=== PATIENT | female | born 1990 | race Caucasian/White ===

== ENCOUNTER 2016-10-13 10:08 | Outpatient (CLI) | payer BC | END 2016-10-13 11:08 | disposition home or self-care (01) | LOC: LC 10:08 | PROVIDERS: ATTEND Obstetrics & Gynecology | PROC: 4A1HXCZ Monitoring of Products of Conception, Cardiac Rate, External Approach (ICD-10-PCS; principal; 2016-10-13) | DX: O24.419 Gestational diabetes mellitus in pregnancy, unspecified control (principal); Z3A.35 35 weeks gestation of pregnancy | CPT/HCPCS: 59025 ==

== ENCOUNTER 2016-10-26 10:03 | Outpatient (CLI) | payer BC ==
--- NOTE | 2016-10-26 10:06 | Non Stress Test Report ---
Non Stress Test Datetime Report Generated by CPN: 10/26/2016 10:05 DEMOGRAPHIC EGA NST: 35.0 INDICATION Indication for Study: Other Indication for Study (NST) Other: Repeat NST MONITORING Monitor Explained: Monitor Explained; Test Explained; Patient Verbalized Understanding Monitor Explained: Monitor Explained; Test Explained; Patient Verbalized Understanding Time on Monitor: 10/13/2016 10:32 Time on Monitor: 10/13/2016 10:18 Time off Monitor: 10/13/2016 11:03 NST Duration: 45 NST INTERVENTIONS NST Interventions: PO Hydration; Reposition Patient NST Interventions: PO Hydration; Reposition Patient Physician Notified NST: Newton BABY A: [id number] BABY A Movement : Present Movement : Present Movement : Present Contraction Frequency : none FHR Baseline : 135 FHR Baseline : 135 Accelerations : 15X15 Accelerations : 15X15 Decelerations : None Decelerations : None Variability : Moderate 6-25bpm Variability : Moderate 6-25bpm NST Review: Meets Criteria for Reactive NST NST Review: Meets Criteria for Reactive NST NST Review and Verified By : Ricarda Vidal RNC NST Review and Verified By : Tutu Callahan RN NST Results: Reactive NST Results: Reactive NST REPORT Report Trigger: Send Report
[2016-10-26 10:40] LABS: APPEARANCE,URINE CLEAR; BILIRUBIN,URINE NEGATIVE (NEGATIVE); GLUCOSE, URINE NEGATIVE (NEGATIVE); KETONES,URINE NEGATIVE (NEGATIVE); LEUKOCYTE ESTERASE,URINE NEGATIVE (NEGATIVE); NITRITE,URINE NEGATIVE (NEGATIVE); PROTEIN,URINE NEGATIVE (NEGATIVE); URINE SPECIFIC GRAVITY 1.003; UROBILINOGEN,URINE NEGATIVE mg/dL (<2.0)
[2016-10-26 10:56] LABS: URINE BARBITURATES SCREEN NEGATIVE; URINE METHADONE SCREEN NEGATIVE; URINE OPIATES LOW NEGATIVE; URINE PHENCYCLIDINE SCREEN NEGATIVE
[2016-10-26 11:01] LABS: ABSOLUTE EOSINOPHILS # (AUTO) 0.1 10^3/uL (0.0-0.6); ABSOLUTE LYMPHOCYTES (AUTO) 1.9 10^3/uL (0.5-4.7); ABSOLUTE MONOCYTES (AUTO) 0.5 10^3/uL (0.1-1.4); ABSOLUTE NEUT (AUTO) 8.6 10^3/uL (1.7-8.2); BASOPHILS % (AUTO) 0.3 % (0-2); EOSINOPHILS % (AUTO) 0.5 % (0-6); HEMATOCRIT 31.9 % (36.0-47.0); HEMOGLOBIN 10.6 g/dL (12.0-15.5); HGB HCT DIFFERENCE -0.1; LYMPHOCYTES % (AUTO) 17.4 % (13-45); MEAN CORPUSCULAR HEMOGLOBIN 28.3 pg (27.0-33.4); MEAN CORPUSCULAR HGB CONC 33.3 g/dL (32.0-36.0); MEAN CORPUSCULAR VOLUME 85 fl (80-97); MONOCYTES % (AUTO) 4.6 % (3-13); RED BLOOD COUNT 3.75 10^6/uL (3.72-5.28); RED CELL DISTRIBUTION WIDTH 14.4 % (11.5-14.0); SEGMENTED NEUTROPHILS % (AUTO) 77.2 % (42-78); WHITE BLOOD COUNT 11.2 10^3/uL (4.0-10.5)
[2016-10-26 11:16] LABS: ALANINE AMINOTRANSFERASE 24 U/L (9-52); ALBUMIN 2.9 g/dL (3.5-5.0); ALKALINE PHOSPHATASE 152 U/L (38-126); ANION GAP 8 (5-19); ASPARTATE AMINO TRANSFERASE 13 U/L (14-36); BILIRUBIN,TOTAL 0.3 mg/dL (0.2-1.3); BLOOD UREA NITROGEN 6 mg/dL (7-20); CALCIUM 9.2 mg/dL (8.4-10.2); CARBON DIOXIDE 22 mmol/L (22-30); CHLORIDE 104 mmol/L (98-107); CREATININE RESULT 0.45 mg/dL (0.52-1.25); GLUCOSE 110 mg/dL (75-110); LDH 371 U/L (313-618); POTASSIUM 4.4 mmol/L (3.6-5.0); SODIUM 134.2 mmol/L (137-145); TOTAL PROTEIN 6.5 g/dL (6.3-8.2); URIC ACID 3.8 mg/dL (2.5-6.2)
--- NOTE | 2016-10-26 11:36 | Non Stress Test Report ---
Non Stress Test Datetime Report Generated by CPN: 10/26/2016 11:36 DEMOGRAPHIC EGA NST: 36.6 INDICATION Indication for Study: Ordered by Provider Indication for Study (NST) Other: pre-e workup MONITORING Monitor Explained: Monitor Explained; Test Explained; Patient Verbalized Understanding Time on Monitor: 10/26/2016 10:14 Time off Monitor: 10/26/2016 11:18 NST Duration: 64 NST INTERVENTIONS NST Interventions: PO Hydration Physician Notified NST: Dr. Newton BABY A Movement : Present Contraction Frequency : none FHR Baseline : 140 Accelerations : 15X15 Decelerations : None Variability : Moderate 6-25bpm NST Review: Meets Criteria for Reactive NST NST Review and Verified By : KAITLIN Mcdonald Results: Reactive NST REPORT Report Trigger: Send Report
== END 2016-10-26 11:28 | disposition home or self-care (01) ==
LOC: LC 10:03
PROVIDERS: ATTEND Obstetrics & Gynecology
PROC: 4A1HXCZ Monitoring of Products of Conception, Cardiac Rate, External Approach (ICD-10-PCS; principal; 2016-10-26)
DX: O16.3 Unspecified maternal hypertension, third trimester (principal); Z3A.36 36 weeks gestation of pregnancy
CPT/HCPCS: 36415; 59025; 80053; 80307; 81001; 83615; 84550; 85025

== ENCOUNTER 2016-11-04 16:49 | Outpatient (CLI) | payer BC ==
[2016-11-04 18:00] LABS: ABSOLUTE EOSINOPHILS # (AUTO) 0.1 10^3/uL (0.0-0.6); ABSOLUTE LYMPHOCYTES (AUTO) 2.2 10^3/uL (0.5-4.7); ABSOLUTE MONOCYTES (AUTO) 0.7 10^3/uL (0.1-1.4); ABSOLUTE NEUT (AUTO) 8.9 10^3/uL (1.7-8.2); BASOPHILS % (AUTO) 0.3 % (0-2); EOSINOPHILS % (AUTO) 0.7 % (0-6); HEMATOCRIT 31.9 % (36.0-47.0); HEMOGLOBIN 10.4 g/dL (12.0-15.5); HGB HCT DIFFERENCE -0.7; LYMPHOCYTES % (AUTO) 18.4 % (13-45); MEAN CORPUSCULAR HEMOGLOBIN 28.1 pg (27.0-33.4); MEAN CORPUSCULAR HGB CONC 32.7 g/dL (32.0-36.0); MEAN CORPUSCULAR VOLUME 86 fl (80-97); MONOCYTES % (AUTO) 5.8 % (3-13); RED BLOOD COUNT 3.72 10^6/uL (3.72-5.28); RED CELL DISTRIBUTION WIDTH 15.3 % (11.5-14.0); SEGMENTED NEUTROPHILS % (AUTO) 74.8 % (42-78); WHITE BLOOD COUNT 11.8 10^3/uL (4.0-10.5)
--- NOTE | 2016-11-04 18:01 | L&D Flow Sheet ---
LD Flowsheet Datetime Report Generated by CPN: 11/04/2016 18:00 Datetime: 11/04/2016 17:56 Vital Signs NBP Sys/Nyla/Mean (mmHg): 122 (QS system process) : 70 (QS system process) : 90 (QS system process) Pulse: 82 (QS system process) Communication LaborFlag: Antepartum (QS system process) Datetime: 11/04/2016 17:44 Vital Signs NBP Sys/Nyla/Mean (mmHg): 119 (QS system process) : 64 (QS system process) : 83 (QS system process) Pulse: 79 (QS system process) Communication LaborFlag: Antepartum (QS system process) Datetime: 11/04/2016 17:26 Vital Signs NBP Sys/Nyla/Mean (mmHg): 122 (QS system process) : 82 (QS system process) : 97 (QS system process) Pulse: 87 (QS system process) Communication LaborFlag: Antepartum (QS system process) Datetime: 11/04/2016 17:12 Patient Care Patient Position/Activity: Left Lateral; Low Fowlers (Dorothy Marlatt, RN) Datetime: 11/04/2016 17:11 Vital Signs NBP Sys/Nyla/Mean (mmHg): 114 (QS system process) : 79 (QS system process) : 92 (QS system process) Pulse: 90 (QS system process) Communication LaborFlag: Antepartum (QS system process)
[2016-11-04 18:06] LABS: ALANINE AMINOTRANSFERASE 29 U/L (9-52); ALBUMIN 3.3 g/dL (3.5-5.0); ALKALINE PHOSPHATASE 160 U/L (38-126); ANION GAP 11 (5-19); ASPARTATE AMINO TRANSFERASE 12 U/L (14-36); BILIRUBIN,TOTAL 0.3 mg/dL (0.2-1.3); BLOOD UREA NITROGEN 8 mg/dL (7-20); CALCIUM 9.4 mg/dL (8.4-10.2); CARBON DIOXIDE 22 mmol/L (22-30); CHLORIDE 103 mmol/L (98-107); CREATININE RESULT 0.52 mg/dL (0.52-1.25); GLUCOSE 85 mg/dL (75-110); LDH 384 U/L (313-618); POTASSIUM 4.5 mmol/L (3.6-5.0); SODIUM 135.6 mmol/L (137-145); TOTAL PROTEIN 6.5 g/dL (6.3-8.2); URIC ACID 3.9 mg/dL (2.5-6.2)
--- NOTE | 2016-11-04 18:53 | Non Stress Test Report ---
Non Stress Test Datetime Report Generated by CPN: 11/04/2016 18:53 DEMOGRAPHIC EGA NST: 38.1 INDICATION Indication for Study: Other Indication for Study (NST) Other: Pre-E work up MONITORING Monitor Explained: Monitor Explained; Test Explained; Patient Verbalized Understanding Time on Monitor: 11/04/2016 17:13 Time off Monitor: 11/04/2016 18:44 NST Duration: 91 NST INTERVENTIONS NST Interventions: PO Hydration Physician Notified NST: Dr. Newton BABY A: [id number] BABY A Movement : Present Contraction Frequency : 0 FHR Baseline : 140 Accelerations : 15X15 Decelerations : None Variability : Moderate 6-25bpm NST Review: Meets Criteria for Reactive NST NST Review and Verified By : kraig camp RNC NST Results: Reactive NST REPORT Report Trigger: Send Report
[2016-11-04 19:44] LABS: URINE BARBITURATES SCREEN NEGATIVE; URINE METHADONE SCREEN NEGATIVE; URINE OPIATES LOW NEGATIVE; URINE PHENCYCLIDINE SCREEN NEGATIVE
== END 2016-11-04 18:49 | disposition home or self-care (01) ==
LOC: LC 16:49
PROVIDERS: ATTEND Obstetrics & Gynecology
PROC: 4A1HXCZ Monitoring of Products of Conception, Cardiac Rate, External Approach (ICD-10-PCS; principal; 2016-11-04)
DX: O16.3 Unspecified maternal hypertension, third trimester (principal); Z3A.38 38 weeks gestation of pregnancy
CPT/HCPCS: 36415; 59025; 80053; 80307; 83615; 84550; 85025

== ENCOUNTER 2016-11-08 09:02 | Inpatient (IN) | payer BC ==
[2016-11-08] MEDS ORDERED: OXYTOCIN/NORMAL SALINE 1,000 ML IV PRN (09:19)
[2016-11-08] MEDS ORDERED: RINGERS SOLUTION,LACTATED 1,000 ML IV PRN (09:19)
[2016-11-08] MEDS ORDERED: RINGERS SOLUTION,LACTATED 1,000 ML IV ONE (09:19)
[2016-11-08] MEDS ORDERED: MISOPROSTOL 0.1 MG TABLET PV ONE ×3 (09:37→19:47)
[2016-11-08] MEDS ORDERED: MISOPROSTOL 0.1 MG TABLET ONE ×3 (09:45→20:02)
[2016-11-08 09:48] LABS: APPEARANCE,URINE SLIGHTLY-CLOUDY; BILIRUBIN,URINE NEGATIVE (NEGATIVE); GLUCOSE, URINE NEGATIVE (NEGATIVE); KETONES,URINE TRACE mg/dL (NEGATIVE); LEUKOCYTE ESTERASE,URINE SMALL (NEGATIVE); NITRITE,URINE NEGATIVE (NEGATIVE); PROTEIN,URINE NEGATIVE (NEGATIVE); URINE SPECIFIC GRAVITY 1.011; UROBILINOGEN,URINE NEGATIVE mg/dL (<2.0)
--- NOTE | 2016-11-08 10:00 | L&D Flow Sheet ---
LD Flowsheet Datetime Report Generated by CPN: 11/08/2016 10:00 Datetime: 11/08/2016 09:22 NBP Sys/Nyla/Mean (mmHg): 135 (QS system process) : 78 (QS system process) : 97 (QS system process) Pulse: 106 (QS system process) LaborFlag: Antepartum (QS system process)
[2016-11-08 10:01] LABS: URINE BARBITURATES SCREEN NEGATIVE; URINE METHADONE SCREEN NEGATIVE; URINE OPIATES LOW NEGATIVE; URINE PHENCYCLIDINE SCREEN NEGATIVE
[2016-11-08 10:34] LABS: ABSOLUTE EOSINOPHILS # (AUTO) 0.1 10^3/uL (0.0-0.6); ABSOLUTE LYMPHOCYTES (AUTO) 1.7 10^3/uL (0.5-4.7); ABSOLUTE MONOCYTES (AUTO) 0.3 10^3/uL (0.1-1.4); BASOPHILS % (AUTO) 0.2 % (0-2); EOSINOPHILS % (AUTO) 0.6 % (0-6); HEMATOCRIT 31.8 % (36.0-47.0); HEMOGLOBIN 10.6 g/dL (12.0-15.5); LYMPHOCYTES % (AUTO) 18.8 % (13-45); MEAN CORPUSCULAR HEMOGLOBIN 28.6 pg (27.0-33.4); MEAN CORPUSCULAR HGB CONC 33.4 g/dL (32.0-36.0); MEAN CORPUSCULAR VOLUME 86 fl (80-97); MONOCYTES % (AUTO) 3.6 % (3-13); RED BLOOD COUNT 3.71 10^6/uL (3.72-5.28); RED CELL DISTRIBUTION WIDTH 15.2 % (11.5-14.0); SEGMENTED NEUTROPHILS % (AUTO) 76.8 % (42-78); WHITE BLOOD COUNT 9.1 10^3/uL (4.0-10.5)
--- NOTE | 2016-11-08 12:00 | L&D Flow Sheet ---
LD Flowsheet Datetime Report Generated by CPN: 11/08/2016 12:00 Datetime: 11/08/2016 11:11 Comments: monitors discontinued, patient ambulating the jama (Dorothy Marlatt, RN) Datetime: 11/08/2016 11:01 Communication: Provider Orders Received (Dorothy Marlatt, RN) Communication Comments: Received order from K. Kohler to let patient ambulate for an hour (Dorothy Karlielatt, RN) Datetime: 11/08/2016 10:53 NBP Sys/Nyla/Mean (mmHg): 120 (QS system process) : 61 (QS system process) : 83 (QS system process) Pulse: 82 (QS system process) LaborFlag: Antepartum (QS system process) Datetime: 11/08/2016 10:33 Monitor Interventions for FHR: Ultrasound Adjusted (Dorothy Marlatt, RN) Datetime: 11/08/2016 10:30 Monitor Mode: External (Dorothyclifton Durham, RN) Frequency (min): irreg (Dorothy Marlatt, RN) Quality: Mild (Dorothy Marlatt, RN) Duration (sec): 50-80 (Dorothy Marlatt, RN) Resting Tone (Palpate): Relaxed (Dorothy Marlatt, RN) Monitor Mode: External US (Dorothy Marlatt, RN) FHR Baseline Rate : 145 (Dorothy Marlatt, RN) Variability: Moderate 6-25 bpm (Dorothy Marlatt, RN) Accelerations: 15X15 (Dorothy Marlatt, RN) Datetime: 11/08/2016 10:23 NBP Sys/Nyla/Mean (mmHg): 120 (QS system process) : 65 (QS system process) : 87 (QS system process) Pulse: 80 (QS system process) LaborFlag: Antepartum (QS system process) Datetime: 11/08/2016 10:15 Medication Comments: Cytotec 25mcg PV and 50 mcg PO (Dorothy Marlatt, RN) Datetime: 11/08/2016 10:05 IV/Blood Work: Labs Drawn (Dorothy Durham, KAITLIN) Datetime: 11/08/2016 10:00 Monitor Mode: External (Dorothy Durham RN) Frequency (min): x2 (Dorothy Durham RN) Quality: Mild (Dorothy Durham RN) Duration (sec): 60-80 (Dorothy Durham RN) Resting Tone (Palpate): Relaxed (Dorothy Durham RN) Monitor Mode: External US (Dorothy Durham RN) FHR Baseline Rate : 150 (Dorothy Durham RN) Variability: Moderate 6-25 bpm (Dorothy Durham RN) Accelerations: 15X15 (Dorothy Durham RN) Decelerations: None (Dorothy Durham RN)
--- NOTE | 2016-11-08 14:00 | L&D Flow Sheet ---
LD Flowsheet Datetime Report Generated by CPN: 11/08/2016 14:00 Datetime: 11/08/2016 12:30 Monitor Mode: External (Dorothy Marlatt, RN) Frequency (min): 0 (Dorothy Marlatt, RN) Resting Tone (Palpate): Relaxed (Dorothy Marlatt, RN) Monitor Mode: External US (Dorothy Marlatt, RN) FHR Baseline Rate : 140 (Dorothy Marlatt, RN) Variability: Moderate 6-25 bpm (Dorothy Marlatt, RN) Decelerations: None (Dorothy Marlatt, RN) Datetime: 11/08/2016 12:19 Patient Position/Activity: Birthing Ball (Dorothy Durham RN)
[2016-11-08] MEDS ORDERED: MISOPROSTOL 0.1 MG TABLET PO ONE (14:54)
--- NOTE | 2016-11-08 16:00 | L&D Flow Sheet ---
LD Flowsheet Datetime Report Generated by CPN: 11/08/2016 16:00 Datetime: 11/08/2016 15:41 Comments: monitors discontinued, patient to ambulate (Dorothy Marlatt, RN) Datetime: 11/08/2016 15:30 Monitor Mode: External (Dorothy Marlatt, RN) Frequency (min): irreg (Dorothy Marlatt, RN) Quality: Mild (Dorothy Marlatt, RN) Duration (sec): 50-90 (Dorothy Marlatt, RN) Resting Tone (Palpate): Relaxed (Dorothy Marlatt, RN) Monitor Mode: External US (Dorothy Garzatt, RN) FHR Baseline Rate : 140 (Dorothy Marlatt, RN) Variability: Moderate 6-25 bpm (Dorothy Marlatt, RN) Accelerations: 15X15 (Dorothy Marlatt, RN) Decelerations: None (Dorothy Marlatt, RN) Datetime: 11/08/2016 15:25 NBP Sys/Nyla/Mean (mmHg): 117 (QS system process) : 66 (QS system process) : 85 (QS system process) Pulse: 75 (QS system process) LaborFlag: Antepartum (QS system process) Datetime: 11/08/2016 15:10 Medication Comments: 25mcg of Cytotec given PV and 50mcg of Cytotec given PO (Dorothy Karlielatt, RN) Datetime: 11/08/2016 15:00 Monitor Mode: External (Dorothy Durham RN) Frequency (min): irreg (Dorothy Durham RN) Quality: Mild (Dorothy Durham RN) Resting Tone (Palpate): Relaxed (Dorothy Durham RN) Monitor Mode: External US (Dorothy Durham RN) FHR Baseline Rate : 150 (Dorothy Durham RN) Variability: Moderate 6-25 bpm (Dorothy Durham RN) Accelerations: 15X15 (Dorothy Durham RN) Communication: Provider Orders Received; Call/Page Placed to Provider (Dorothy Durham RN) Provider Notified (Name): Diana Kohler CNM (Dorothy Durham RN) Notification Reason: Status Update; Status; Labor Status; Uterine Activity (Dorothy Durham RN) Communication Comments: notified provider of unchanged SVE. Received order to give 50mcg of cytotec PO and 25mcg of Cytotec PV and recheck cervix in 4 hrs (Dorothy Durham RN) Datetime: 11/08/2016 14:54 NBP Sys/Nyla/Mean (mmHg): 119 (QS system process) : 65 (QS system process) : 86 (QS system process) Pulse: 76 (QS system process) LaborFlag: Antepartum (QS system process) Datetime: 11/08/2016 14:34 I/O Interventions: Up to BR (Dorothy Durham RN) Datetime: 11/08/2016 14:30 Monitor Mode: External (Dorothy Durham RN) Frequency (min): irreg (Dorothy Durham RN) Quality: Mild (Dorothy Durham RN) Duration (sec): 50-80 (Dorothy Durham RN) Resting Tone (Palpate): Relaxed (Dorothy Durham RN) Monitor Mode: External US (Dorothy Durham RN) FHR Baseline Rate : 140 (Dorothy Durham RN) Variability: Moderate 6-25 bpm (Dorothy Durham RN) Accelerations: 15X15 (Dorothy Durham RN) Decelerations: None (Dorothy Marlatt, RN) Datetime: 11/08/2016 14:24 NBP Sys/Nyla/Mean (mmHg): 124 (QS system process) : 72 (QS system process) : 91 (QS system process) Pulse: 75 (QS system process) LaborFlag: Antepartum (QS system process) Datetime: 11/08/2016 14:22 Dilatation (cm): 1.0 (Dorothy Durham RN) Effacement (%): 30 (Dorothy Durham RN) Station: -2 (Dorothy Durham RN) Exam by: Diana Durham RN (Dorothy Durham, KAITLIN) Datetime: 11/08/2016 14:00 Monitor Mode: External (Dorothy Durham RN) Frequency (min): irreg (Dorothy Durham RN) Quality: Mild (Dorothy Durham RN) Duration (sec): 50-80 (Dorothy Durham RN) Resting Tone (Palpate): Relaxed (Dorothy Durham RN) Monitor Mode: External US (Dorothy Durham RN) FHR Baseline Rate : 130 (Dorothy Durham RN) Accelerations: 15X15 (Dorothy Durham RN) Decelerations: None (Dorothy Durham RN)
--- NOTE | 2016-11-08 18:00 | L&D Flow Sheet ---
LD Flowsheet Datetime Report Generated by CPN: 11/08/2016 18:00 Datetime: 11/08/2016 17:40 Patient Care Comments: patient eating dinner (Dorothy Marlatt, RN) Datetime: 11/08/2016 17:30 Monitor Mode: External; Palpation (Dorothy Marlatt, RN) Frequency (min): irreg (Dorothy Marlatt, RN) Quality: Mild (Dorothy Marlatt, RN) Duration (sec): 50-80 (Dorothy Marlatt, RN) Resting Tone (Palpate): Relaxed (Dorothy Marlatt, RN) Monitor Mode: External US (Dorothy Marlatt, RN) FHR Baseline Rate : 135 (Dorothy Marlatt, RN) Variability: Moderate 6-25 bpm (Dorothy Marlatt, RN) Accelerations: 15X15 (Dorothy Marlatt, RN) Decelerations: None (Dorothy Marlatt, RN) Datetime: 11/08/2016 17:22 Monitor Interventions for FHR: Ultrasound Adjusted (Dorothy Marlatt, RN) Communication: RN at Bedside (Dorothy Marlatt, RN) Datetime: 11/08/2016 17:11 Patient Position/Activity: Birthing Ball (Dorothy Marlatt, RN) Datetime: 11/08/2016 17:00 Monitor Mode: External (Dorothy Marlatt, RN) Frequency (min): irreg (Dorothy Marlatt, RN) Quality: Mild/Moderate (Dorothy Marlatt, RN) Duration (sec): 50-80 (Dorothy Marlatt, RN) Resting Tone (Palpate): Relaxed (Dorothy Marlatt, RN) Monitor Mode: External US (Dorothy Marlatt, RN) FHR Baseline Rate : 140 (Dorothy Marlatt, RN) Variability: Moderate 6-25 bpm (Dorothy Marlatt, RN) Accelerations: 15X15 (Dorothy Marlatt, RN) Decelerations: None (Dorothy Marlatt, RN) Datetime: 11/08/2016 16:43 NBP Sys/Nyla/Mean (mmHg): 132 (QS system process) : 63 (QS system process) : 91 (QS system process) Pulse: 81 (QS system process) LaborFlag: Antepartum (QS system process) Datetime: 11/08/2016 16:42 Patient Position/Activity: Left Tilt; Semi-Fowlers (Dorothy Zieglerlatt, RN) Datetime: 11/08/2016 16:41 Patient Position/Activity: Left Tilt; Semi-Fowlers (Dorothy Kaylatt, RN)
--- NOTE | 2016-11-08 20:00 | L&D Flow Sheet ---
LD Flowsheet Datetime Report Generated by CPN: 11/08/2016 20:00 Datetime: 11/08/2016 19:31 Dilatation (cm): 1.0 (Jordyn Connell, RN) Effacement (%): 60 (Jordyn Connell, RN) Station: -2 (Jordyn Connell, RN) Exam by: B Connell, RN (Jordyn Connell, RN) Vaginal Bleeding: None (Jordyn Connell, RN) Cervix, Consistency: Moderate (Jordyn Connell, RN) Cervix, Position: Midposition (Jordyn Connell, RN) Datetime: 11/08/2016 19:24 Level of Consciousness: Fully Conscious (Jordyn Connell, RN) DTR's/Clonus: DTRs 1+; No Clonus (Jordyn Connell, RN) Headache: Denies (Jordyn Connell, RN) Breath Sounds, Left: Clear and Equal (Jordyn Connell, RN) Breath Sounds, Right: Clear and Equal (Jordyn Connell, RN) Nausea/Vomiting: Denies (Jordyn Connell, RN) RUQ Epigastric Pain: Denies (Jordyn Connell, RN) Datetime: 11/08/2016 19:14 Communication: Report Given to @ B. Connell RN (Dorothy Durham, RN) Communication Comments: care relinguished (Dorothy Marlatt, RN) Datetime: 11/08/2016 19:00 Monitor Mode: External (Dorothy Garzatt, RN) Frequency (min): 1.5-4 (Dorothy Marlatt, RN) Quality: Mild/Moderate (Dorothy Marlatt, RN) Duration (sec): 50-60 (Dorothy Marlatt, RN) Resting Tone (Palpate): Relaxed (Dorothy Marlatt, RN) Monitor Mode: External US (Dorothy Marlatt, RN) FHR Baseline Rate : 135 (Dorothy Marlatt, RN) Variability: Moderate 6-25 bpm (Dorothy Marlatt, RN) Accelerations: 15X15 (Dorothy Marlatt, RN) Decelerations: None (Dorothy Marlatt, RN) Datetime: 11/08/2016 18:34 Patient Position/Activity: High Fowlers (Dorothy Marlatt, RN) Datetime: 11/08/2016 18:31 I/O Interventions: Up to BR (Dorothy Marlatt, RN) Datetime: 11/08/2016 18:30 Monitor Mode: External (Dorothy Marlatt, RN) Frequency (min): irreg (Dorothy Marlatt, RN) Quality: Mild/Moderate (Dorothy Marlatt, RN) Duration (sec): 60-80 (Dorothy Marlatt, RN) Resting Tone (Palpate): Relaxed (Dorothy Marlatt, RN) Monitor Mode: External US (Dorothy Marlatt, RN) FHR Baseline Rate : 130 (Dorothy Marlatt, RN) Variability: Moderate 6-25 bpm (Dorothy Marlatt, RN) Accelerations: 15X15 (Dorothy Marlatt, RN) Decelerations: None (Dorothy Marlatt, RN) Datetime: 11/08/2016 18:28 Monitor Interventions for FHR: Ultrasound Adjusted (Dorothy Marlatt, RN) Datetime: 11/08/2016 18:00 Monitor Mode: External (Dorothy Durham RN) Frequency (min): irreg (Dorothy Durham RN) Quality: Mild/Moderate (Dorothy Durham RN) Duration (sec): 50-100 (Dorothy Durham RN) Resting Tone (Palpate): Relaxed (Dorothy Durham RN) Monitor Mode: External US (Dorothy Durham RN) FHR Baseline Rate : 135 (Dorothy Durham RN) Variability: Moderate 6-25 bpm (Dorothy Durham RN) Accelerations: 15X15 (Dorothy Durham RN) Decelerations: None (Dorothy Durham RN)
--- NOTE | 2016-11-08 22:00 | L&D Flow Sheet ---
LD Flowsheet Datetime Report Generated by CPN: 11/08/2016 22:00 Datetime: 11/08/2016 21:25 NBP Sys/Nyla/Mean (mmHg): 125 (QS system process) : 70 (QS system process) : 91 (QS system process) Pulse: 75 (QS system process) LaborFlag: Antepartum (QS system process) Datetime: 11/08/2016 20:30 Stage of : Antepartum (Jordyn Connell, RN) Respirations: 18 (Jordyn Connell, RN) Monitor Mode: External (Jordyn Connell RN) Frequency (min): 2-4.5 (Jordyn Connell RN) Quality: Mild (Jordyn Connell RN) Duration (sec): 70-100 (Jordyn Connell RN) Resting Tone (Palpate): Relaxed (Jordyn Connell RN) Monitor Mode: External US (Jordyn Connell RN) FHR Baseline Rate : 140 (Jordyn Connell RN) Variability: Moderate 6-25 bpm (Jordyn Connell RN) Accelerations: 15X15 (Jordyn Connell RN) Decelerations: None (Jordyn Connell RN) Pain Scale: 1 (Jordyn Connell RN) Pain Presence: Intermittent (Jordyn Connell RN) Pain Type: Cramping (Jordyn Connell RN) Pain Location: Abdomen (Jordyn Connell RN) Pain Relief Measures: Comfort Measures (Jordyn Connell RN) Comfort Measures: Breathing/Relaxation; Family Support (Jordyn Connell RN) Communication: RN at Bedside; RN Reviewed Strip (Jordyn Connell RN) LaborFlag: Antepartum (QS system process) Datetime: 11/08/2016 20:06 Cervical Ripening Agents: Cytotec @ 50 mcgs PO, 25 mcgs PV (Jordyn Connell RN) Datetime: 11/08/2016 20:04 Patient Position/Activity: Right Tilt; Semi-Fowlers (Jordyn Connell RN) Datetime: 11/08/2016 20:00 Stage of : Antepartum (Jordyn Connell RN) Monitor Mode: External (Jordyn Connell RN) Frequency (min): irregular (Jordyn Connell RN) Quality: Mild (Jordyn Connell RN) Duration (sec): 50-90 (Jordyn Connell RN) Resting Tone (Palpate): Relaxed (Jordyn Connell RN) Monitor Mode: External US (Jordyn Connell RN) FHR Baseline Rate : 140 (Jordyn Connell RN) Variability: Moderate 6-25 bpm (Jordyn Connell RN) Accelerations: 15X15 (Jordyn Connell, KAITLIN) Comments: unable to determine during broken strip (Jordyn Connell RN) Comments: Rn at beside, patient bouncing on birthing ball. Maternal HR tracing RN confirmed by palpation. (Jordyn oCnnell RN) Communication: RN at Bedside; RN Reviewed Strip (Jordyn Connell RN)
[2016-11-09] MEDS ORDERED: OXYTOCIN/NORMAL SALINE 20 UNIT/1,000 ML RTUINJ ONE ×2 (01:08→20:02)
[2016-11-09] MEDS ORDERED: EPHEDRINE SULFATE INJ 50 MG/1 ML AMPULE ONE (07:18)
[2016-11-09] MEDS ORDERED: BUPIVACAINE HCL 0.25 % INJ/PF (2.5 MG/1 ML) 30 ML VIAL ONE (07:19)
[2016-11-09] MEDS ORDERED: FENTANYL/BUPIVACAINE/NS/PF 200 MCG/100 ML RTUINJ EPI ONE ×2 (07:19→17:11)
[2016-11-09 07:42] LABS: ABSOLUTE BASOPHILS # (AUTO) 0.1 10^3/uL (0.0-0.2); ABSOLUTE LYMPHOCYTES (AUTO) 1.6 10^3/uL (0.5-4.7); ABSOLUTE MONOCYTES (AUTO) 0.6 10^3/uL (0.1-1.4); ABSOLUTE NEUT (AUTO) 10.5 10^3/uL (1.7-8.2); BASOPHILS % (AUTO) 0.5 % (0-2); EOSINOPHILS % (AUTO) 0.3 % (0-6); HEMATOCRIT 32.7 % (36.0-47.0); HEMOGLOBIN 10.9 g/dL (12.0-15.5); LYMPHOCYTES % (AUTO) 12.6 % (13-45); MEAN CORPUSCULAR HEMOGLOBIN 28.5 pg (27.0-33.4); MEAN CORPUSCULAR HGB CONC 33.3 g/dL (32.0-36.0); MEAN CORPUSCULAR VOLUME 86 fl (80-97); MONOCYTES % (AUTO) 4.7 % (3-13); RED BLOOD COUNT 3.82 10^6/uL (3.72-5.28); RED CELL DISTRIBUTION WIDTH 15.1 % (11.5-14.0); SEGMENTED NEUTROPHILS % (AUTO) 81.9 % (42-78); WHITE BLOOD COUNT 12.8 10^3/uL (4.0-10.5)
--- NOTE | 2016-11-09 08:01 | L&D Flow Sheet ---
LD Flowsheet Datetime Report Generated by CPN: 11/09/2016 08:00 Datetime: 11/09/2016 07:48 NBP Sys/Nyla/Mean (mmHg): 128 (QS system process) : 83 (QS system process) : 101 (QS system process) Pulse: 77 (QS system process) LaborFlag: Antepartum (QS system process) Datetime: 11/09/2016 07:36 Comments: pt leaning up in bed, tracing maternal HR (Melody Arthur, RN) Datetime: 11/09/2016 07:19 Patient Care Comments: pt sitting up in bed leaning forward, tracing maternal HR (Melody Arthur, RN) Datetime: 11/09/2016 07:18 NBP Sys/Nyla/Mean (mmHg): 130 (QS system process) : 80 (QS system process) : 98 (QS system process) Pulse: 86 (QS system process) LaborFlag: Antepartum (QS system process) Datetime: 11/09/2016 07:12 Communication: RN at Bedside (Annotations: Report given to A Arthur, RN. Care relinquished at this time. ) (Jordyn Connell RN) Datetime: 11/09/2016 07:10 Bedside Blood Glucose: 87 (QS system process) Bedside Blood Glucose: 87 (Jordyn Connell RN) LaborFlag: Antepartum (QS system process) Datetime: 11/09/2016 07:03 Pain Scale: 4 (Jordyn Connell RN) Pain Presence: Intermittent (Jordyn Connell RN) Pain Type: Contraction (Jordyn Connell RN) Pain Location: Back (Jordyn Connell RN) Pain Goal: 1 (Jordyn Connell RN) Pain Relief Measures: Comfort Measures (Jordyn Connell RN) Pain Coping: Requesting Pain Medication or Epidural (Jordyn Connell RN) Comfort Measures: Breathing/Relaxation; Family Support (Jordyn Connell RN) Procedure Verify: Correct Patient Identity; Correct Side and Site are Marked; Accurate Procedure Consent Form (Jordyn Connell RN) Anesthesia Comments: EPIDURAL (Jordyn Connell RN) LaborFlag: Antepartum (QS system process) Datetime: 11/09/2016 07:02 Comments: Tracing maternal HR due to patient positioning (Jordyn Connell, KAITLIN) Datetime: 11/09/2016 07:00 Stage of : Antepartum (Jordyn Connell RN) Monitor Mode: External; Palpation (Jordyn Connell RN) Frequency (min): 2-4.5 (Jordyn Connell RN) Quality: Moderate (Jordyn Connell RN) Duration (sec): 80-120 (Jordyn Connell, RN) Pattern: Normal: <= 5 Contractions in 10 Minutes (Jordyn Connell RN) Resting Tone (Palpate): Relaxed (Jordyn Connell RN) Monitor Mode: External US (Jordyn Connell RN) Monitor Interventions for FHR: Ultrasound Adjusted (Jordyn Connell RN) FHR Baseline Rate : 130 (Jordyn Connell, RN) Variability: Moderate 6-25 bpm (Jordyn Connell RN) Accelerations: None (Jordyn Connell, RN) Comments: RN at bedside, HR down to 90s is maternal due to rocking through contractions (Jordyn Connell, RN) Communication: RN at Bedside; RN Reviewed Strip (Jordyn Connell, RN) Datetime: 11/09/2016 06:59 Monitor Interventions for FHR: Ultrasound Adjusted (Jordyn Connell, RN) Datetime: 11/09/2016 06:48 NBP Sys/Nyla/Mean (mmHg): 143 (QS system process) : 91 (QS system process) : 110 (QS system process) Pulse: 79 (QS system process) LaborFlag: Antepartum (QS system process) Datetime: 11/09/2016 06:45 Stage of : Antepartum (Jordyn Connell, RN) Monitor Mode: External (Jordyn Connell, RN) Frequency (min): 2-3.5 (Jordyn Connell, RN) Quality: Mild/Moderate (Jordyn Connell, RN) Duration (sec): 60-110 (Jordyn Connell, RN) Pattern: Normal: <= 5 Contractions in 10 Minutes (Jordyn Connell, RN) Resting Tone (Palpate): Relaxed (Jordyn Connell, RN) Monitor Mode: External US (Jordyn Connell, RN) FHR Baseline Rate : 130 (Jordyn Connell, RN) Variability: Moderate 6-25 bpm (Jordyn Connell, RN) Accelerations: 15X15 (Jordyn Connell, RN) Decelerations: None (Jordyn Connell, RN) Communication: RN at Bedside; RN Reviewed Strip (Jordyn Connell, RN) Datetime: 11/09/2016 06:30 Stage of : Antepartum (Jordyn Connell, RN) Respirations: 18 (Jordyn Connell, RN) Monitor Mode: External (Jordyn Connell, RN) Frequency (min): 1.5-4 (Jordyn Connell, RN) Quality: Mild/Moderate (Jordyn Connell, RN) Duration (sec): 70-100 (Jordyn Connell, RN) Pattern: Normal: <= 5 Contractions in 10 Minutes (Jordyn Connell, RN) Resting Tone (Palpate): Relaxed (Jordyn Connell RN) Monitor Mode: External US (Jordyn Connell RN) FHR Baseline Rate : 120 (Jordyn Connell RN) Variability: Moderate 6-25 bpm (Jordyn Connell RN) Accelerations: 15X15 (Jordyn Connell RN) Decelerations: None (Jordyn Connell RN) Pain Scale: 3 (Jordyn Connell RN) Pain Presence: None/Denies (Jordyn Connell RN) Pain Type: Contraction (Jordyn Connell RN) Pain Location: Abdomen (Jordyn Connell RN) Pain Goal: 1 (Jordyn Connell RN) Pain Relief Measures: Comfort Measures (Jordyn Connell RN) Pain Coping: Breathing Through Contractions (Jordyn Connell RN) Comfort Measures: Breathing/Relaxation; Family Support (Jordyn Connell RN) Communication: RN at Bedside; RN Reviewed Strip (Jordyn Connell RN) LaborFlag: Antepartum (QS system process) Datetime: 11/09/2016 06:19 NBP Sys/Nyla/Mean (mmHg): 123 (QS system process) : 82 (QS system process) : 98 (QS system process) Pulse: 73 (QS system process) LaborFlag: Antepartum (QS system process) Datetime: 11/09/2016 06:15 Stage of : Antepartum (Jordyn Connell, RN) Respirations: 18 (Jordyn Connell, RN) Temperature (F): 97.7 (Jordyn Connell, RN) Temperature (C): 36.5 (QS system process) Monitor Mode: External (Jordyn Connell, RN) Frequency (min): 1.5-9 (Jordyn Connell, RN) Quality: Mild/Moderate (Jordyn Connell, RN) Duration (sec): 60-120 (Jordyn Connell, RN) Pattern: Normal: <= 5 Contractions in 10 Minutes (Jordyn Connell, RN) Resting Tone (Palpate): Relaxed (Jordyn Connell, RN) Monitor Mode: External US (Jordyn Connell, RN) FHR Baseline Rate : 120 (Jordyn Connell, RN) Variability: Moderate 6-25 bpm (Jordyn Connell, RN) Accelerations: 15X15 (Jordny Connell, RN) Decelerations: None (Jordyn Connell, RN) Communication: RN at Bedside; RN Reviewed Strip (Jordyn Connell, RN) LaborFlag: Antepartum (QS system process) Datetime: 11/09/2016 06:04 Pitocin (milliunit): Pitocin Increased to (milliunits) @ 10 (Jordyn Connell, RN) Datetime: 11/09/2016 06:00 Stage of : Antepartum (Jordyn Connell, KAITLIN) Respirations: 18 (Jordyn Connell, KAITLIN) Monitor Mode: External (Jordyn Connell, RN) Frequency (min): 1.5-6 (Jordyn Connell, KAITLIN) Quality: Mild/Moderate (Jordyn Connell, RN) Duration (sec): 70-120 (Jordyn Connell, KAITLIN) Pattern: Normal: <= 5 Contractions in 10 Minutes (Jordyn Connell RN) Resting Tone (Palpate): Relaxed (Jordyn Connell, RN) Monitor Mode: External US (Jordyn Connell, RN) FHR Baseline Rate : 120 (Jordyn Connell, RN) Variability: Moderate 6-25 bpm (Jordyn Connell, RN) Accelerations: 15X15 (Jorydn Connell, RN) Decelerations: None (Jordyn Connell, RN) Pain Scale: 3 (Jordyn Connell RN) Pain Presence: Intermittent (Jordyn Connell RN) Pain Type: Contraction (Jordyn Connell, RN) Pain Location: Abdomen (Jordyn Connell, RN) Pain Goal: 1 (Jordyn Connell RN) Pain Relief Measures: Comfort Measures (Jordyn Connell RN) Pain Coping: Talking Through Contractions (Jordyn Connell RN) Comfort Measures: Breathing/Relaxation; Family Support (Jordyn Connell RN) Communication: RN at Bedside; RN Reviewed Strip (Jordyn Connell RN) LaborFlag: Antepartum (QS system process) Datetime: 11/09/2016 05:49 NBP Sys/Nyla/Mean (mmHg): 138 (QS system process) : 82 (QS system process) : 105 (QS system process) Pulse: 72 (QS system process) LaborFlag: Antepartum (QS system process) Datetime: 11/09/2016 05:45 Stage of : Antepartum (Jordyn Connell, RN) Monitor Mode: External (Jordyn Connell, RN) Frequency (min): x1 (Jordyn Connell, RN) Quality: Mild/Moderate (Jordyn Connell, RN) Duration (sec): 130 (Jordyn Connell, RN) Pattern: Normal: <= 5 Contractions in 10 Minutes (Jordyn Connell, RN) Resting Tone (Palpate): Relaxed (Jordyn Connell, RN) Monitor Mode: External US (Jordyn Connell, RN) FHR Baseline Rate : 125 (Jordyn Connell, RN) Variability: Moderate 6-25 bpm (Jordyn Connell, RN) Accelerations: 15X15 (Jordyn Connell, RN) Decelerations: None (Jordyn Connell, RN) Communication: RN at Bedside; RN Reviewed Strip (Jordyn Connell, RN) Datetime: 11/09/2016 05:32 I/O Interventions: Up to BR (Jordyn Connell, RN) Datetime: 11/09/2016 05:30 Stage of : Antepartum (Jordyn Connell, RN) Respirations: 18 (Jordyn Connell, RN) Monitor Mode: External; Palpation (Jordyn Connell, RN) Frequency (min): irregular (Jordyn Connell, RN) Quality: Mild/Moderate (Jordyn Connell, RN) Duration (sec): 40-70 (Jordyn Connell, RN) Pattern: Normal: <= 5 Contractions in 10 Minutes (Jordyn Connell, RN) Resting Tone (Palpate): Relaxed (Jordyn Connell, RN) Monitor Mode: External US (Jordyn Connell, RN) FHR Baseline Rate : 125 (Jordyn Connell, RN) Variability: Moderate 6-25 bpm (Jordyn Connell, RN) Accelerations: 15X15 (Jordyn Connell, RN) Decelerations: None (Jordyn Connell, RN) Pain Scale: 3 (Jordyn Connell RN) Pain Presence: Intermittent (Jordyn Connell RN) Pain Type: Contraction (Jordyn Connell RN) Pain Location: Abdomen (Jordyn Connell RN) Pain Goal: 1 (Jordyn Connell RN) Pain Relief Measures: Comfort Measures (Jordyn Connell RN) Pain Coping: Talking Through Contractions (Jordyn Connell RN) Comfort Measures: Breathing/Relaxation; Family Support (Jordyn Connell RN) Communication: RN at Bedside; RN Reviewed Strip (Jordyn Connell RN) LaborFlag: Antepartum (QS system process) Datetime: 11/09/2016 05:28 Membrane Status: Ruptured (Jordyn Connell, RN) Membranes Rupture Method: Spontaneous (Jordyn Connell, RN) Amniotic Fluid Color: Clear (Jordyn Connell, RN) Amniotic Fluid Amount: Moderate (Jordyn Connell, RN) Amniotic Fluid Odor: Normal (Jordyn Connell, RN) Datetime: 11/09/2016 05:18 NBP Sys/Nyla/Mean (mmHg): 121 (QS system process) : 73 (QS system process) : 93 (QS system process) Pulse: 64 (QS system process) LaborFlag: Antepartum (QS system process) Datetime: 11/09/2016 05:15 Stage of : Antepartum (Jordyn Connell, RN) Monitor Mode: External (Jordyn Connell, RN) Frequency (min): 1.5-5 (Jordyn Connell, RN) Quality: Mild/Moderate (Jordyn Connell, RN) Duration (sec): 50-90 (Jordyn Connell, RN) Pattern: Normal: <= 5 Contractions in 10 Minutes (Jordyn Connell, RN) Resting Tone (Palpate): Relaxed (Jordyn Connell, RN) Monitor Mode: External US (Jordyn Connell, RN) FHR Baseline Rate : 130 (Jordyn Connell, RN) Variability: Moderate 6-25 bpm (Jordyn Connell, RN) Accelerations: 15X15 (Jordyn Connell, RN) Decelerations: None (Jordyn Connell, RN) Communication: RN Reviewed Strip (Jordyn Connell, RN) Datetime: 11/09/2016 05:00 Stage of : Antepartum (Jordyn Connell, RN) Monitor Mode: External (Jordyn Connell, RN) Frequency (min): 1.5-2.5 (Jordyn Connell, RN) Frequency (min): 1 (Jordyn Connell, RN) Quality: Mild/Moderate (Jordyn Connell, RN) Duration (sec): 60-100 (Jordyn Connell, RN) Pattern: Normal: <= 5 Contractions in 10 Minutes (Jordyn Connell, RN) Monitor Mode: External US (Jordyn Connell, RN) FHR Baseline Rate : 130 (Jordyn Connell, RN) Variability: Moderate 6-25 bpm (Jordyn Connell, RN) Accelerations: 15X15 (Jordyn Connell, RN) Decelerations: None (Jordyn Connell, RN) Communication: RN at Bedside; RN Reviewed Strip (Jordyn Connell, RN) Datetime: 11/09/2016 04:48 NBP Sys/Nyla/Mean (mmHg): 123 (QS system process) : 75 (QS system process) : 94 (QS system process) Pulse: 71 (QS system process) LaborFlag: Antepartum (QS system process) Datetime: 11/09/2016 04:45 Stage of : Antepartum (Jordyn Connell RN) Respirations: 18 (Jordyn Connell RN) Monitor Mode: External; Palpation (Jordyn Connell RN) Frequency (min): 1.5-3.5 (Jordyn Connell RN) Quality: Mild/Moderate (Jordyn Connell RN) Duration (sec): 50-110 (Jordyn Connell RN) Pattern: Normal: <= 5 Contractions in 10 Minutes (Jordyn Connell RN) Resting Tone (Palpate): Relaxed (Jordyn Connell RN) Monitor Mode: External US (Jordyn Connell RN) Monitor Interventions for FHR: Ultrasound Adjusted (Jordyn Connell RN) FHR Baseline Rate : 130 (Jordyn Connell, KAITLIN) Variability: Moderate 6-25 bpm (Jordyn Connell, KAITLIN) Accelerations: 10X10 (Jordyn Connell RN) Decelerations: None (Jordyn Connell RN) Pain Scale: 3 (Jordyn Connell RN) Pain Presence: Intermittent (Jordyn Connell RN) Pain Type: Contraction (Jordyn Connell RN) Pain Location: Abdomen (Jordyn Connell RN) Pain Goal: 1 (Jordyn Connell RN) Pain Relief Measures: Comfort Measures (Jordyn Connell RN) Pain Coping: Talking Through Contractions (Jordyn Connell RN) Comfort Measures: Breathing/Relaxation; Family Support (Jordyn Connell RN) Communication: RN at Bedside; RN Reviewed Strip (Jordyn Connell RN) LaborFlag: Antepartum (QS system process) Datetime: 11/09/2016 04:30 Stage of : Antepartum (Jordyn Connell, RN) Monitor Mode: External (Jordyn Connell, RN) Frequency (min): 1-3 (Jordyn Connell, RN) Quality: Mild/Moderate (Jordyn Connell, RN) Duration (sec): 40-90 (Jordyn Connell, RN) Pattern: Normal: <= 5 Contractions in 10 Minutes (Jordyn Connell, RN) Resting Tone (Palpate): Relaxed (Jordyn Connell, RN) Monitor Mode: External US (Jordyn Connell, RN) FHR Baseline Rate : 130 (Jordyn Connell, RN) Variability: Moderate 6-25 bpm (Jordyn Connell, RN) Accelerations: 15X15 (Jordyn Connell, RN) Communication: RN at Bedside; RN Reviewed Strip (Jordyn Connell, RN) Datetime: 11/09/2016 04:28 I/O Interventions: Up to BR (Jordyn Connell, RN) Datetime: 11/09/2016 04:18 NBP Sys/Nyla/Mean (mmHg): 104 (QS system process) : 58 (QS system process) : 78 (QS system process) Pulse: 83 (QS system process) LaborFlag: Antepartum (QS system process) Datetime: 11/09/2016 04:15 Stage of : Antepartum (Jordyn Connell, RN) Monitor Mode: External (Jordyn Connell, RN) Frequency (min): 1.5-2 (Jordyn Connell, RN) Quality: Mild/Moderate (Jordyn Connell, RN) Duration (sec): 50-90 (Jordyn Connell, RN) Pattern: Normal: <= 5 Contractions in 10 Minutes (Jordyn Connell, RN) Monitor Mode: External US (Jordyn Connell, RN) FHR Baseline Rate : 140 (Jordyn Connell, RN) Variability: Moderate 6-25 bpm (Jordyn Connell, RN) Accelerations: 15X15 (Jordyn Connell, RN) Decelerations: None (Jordyn Connell, RN) Communication: RN Reviewed Strip (Jordyn Connell, RN) Datetime: 11/09/2016 04:00 Stage of : Antepartum (Jordyn Connell, RN) Monitor Mode: External (Jordyn Connell, RN) Frequency (min): 1.5-5 (Jordyn Connell, RN) Quality: Mild/Moderate (Jordyn Connell, RN) Duration (sec): 40-60 (Jordyn Connell, RN) Pattern: Normal: <= 5 Contractions in 10 Minutes (Jordyn Connell, RN) Resting Tone (Palpate): Relaxed (Jordyn Connell, RN) Monitor Mode: External US (Jordyn Connell, RN) FHR Baseline Rate : 130 (Jordyn Connell, RN) Variability: Moderate 6-25 bpm (Jordyn Connell, RN) Accelerations: 15X15 (Jordyn Connell, RN) Decelerations: None (Jordyn Connell, RN) Communication: RN Reviewed Strip (Jordyn Connell, RN) Datetime: 11/09/2016 03:48 NBP Sys/Nyla/Mean (mmHg): 98 (QS system process) : 54 (QS system process) : 71 (QS system process) Pulse: 72 (QS system process) LaborFlag: Antepartum (QS system process) Datetime: 11/09/2016 03:45 Stage of : Antepartum (Jordyn Connell, RN) Monitor Mode: External (Jordyn Connell, RN) Frequency (min): 1.5-4 (Jordyn Connell, RN) Quality: Mild/Moderate (Jordyn Connell, RN) Duration (sec): 50-100 (Jordyn Connell, RN) Pattern: Normal: <= 5 Contractions in 10 Minutes (Jordyn Connell, RN) Resting Tone (Palpate): Non Relaxed (Jordyn Connell, RN) Monitor Mode: External US (Jordyn Connell, RN) Monitor Interventions for FHR: Ultrasound Adjusted (Jordyn Connell, RN) FHR Baseline Rate : 120 (Jordyn Connell, RN) Variability: Moderate 6-25 bpm (Jordyn Connell, RN) Accelerations: 15X15 (Jordyn Connell, RN) Comments: UTD if decels present during broken strip (Jordyn Connell, RN) Communication: RN at Bedside; RN Reviewed Strip (Jordyn Connell, RN) Datetime: 11/09/2016 03:36 Monitor Interventions for FHR: Ultrasound Adjusted (Jordyn Connell, RN) Comments: Rn at bedside adjusting FHR monitor, audible movement (Jordyn Connell, RN) Datetime: 11/09/2016 03:30 Stage of : Antepartum (Jordyn Connell, RN) Monitor Mode: External (Jordyn Connell, RN) Frequency (min): 1.5-5 (Jordyn Connell, RN) Quality: Mild/Moderate (Jordyn Connell, RN) Duration (sec): 60-80 (Jordyn Connell, RN) Pattern: Normal: <= 5 Contractions in 10 Minutes (Jordyn Connell, RN) Resting Tone (Palpate): Relaxed (Jordyn Connell, RN) Monitor Mode: External US (Jordyn Connell, RN) FHR Baseline Rate : 140 (Jordyn Connell, RN) Variability: Minimal - Undetectable to <=5 bpm (Jordyn Connell, RN) Accelerations: None (Jordyn Connell, RN) Decelerations: None (Jordyn Connell, RN) Communication: RN Reviewed Strip (Jordyn Connell, RN) Datetime: 11/09/2016 03:18 NBP Sys/Nyla/Mean (mmHg): 119 (QS system process) : 78 (QS system process) : 92 (QS system process) Pulse: 74 (QS system process) LaborFlag: Antepartum (QS system process) Datetime: 11/09/2016 03:15 Stage of : Antepartum (Jordyn Connell RN) Respirations: 18 (Jordyn Connell RN) Monitor Mode: External; Palpation (Jordyn Connell, RN) Frequency (min): 2-3 (Jordyn Connell, KAITLIN) Quality: Mild/Moderate (Jordyn Connell, RN) Duration (sec): 70-90 (Jordyn Connell, RN) Pattern: Normal: <= 5 Contractions in 10 Minutes (Jordyn Connell, RN) Resting Tone (Palpate): Relaxed (Jordyn Connell, RN) Monitor Mode: External US (Jordyn Connell, KAITLIN) FHR Baseline Rate : 140 (Jordyn Connell, RN) Variability: Moderate 6-25 bpm (Jordyn Connell, RN) Accelerations: 10X10 (Jordyn Connell, RN) Decelerations: None (Jordyn Connell, RN) Pain Scale: 3 (Jordyn Connell RN) Pain Presence: Intermittent (Jordyn Connell RN) Pain Type: Contraction (Jordyn Connell RN) Pain Location: Abdomen (Jordyn Connell RN) Pain Goal: 1 (Jordyn Connell RN) Pain Relief Measures: Comfort Measures (Jordyn Connell RN) Pain Coping: Talking Through Contractions (Jordyn Connell RN) Comfort Measures: Breathing/Relaxation; Family Support (Jordyn Connell RN) Communication: RN at Bedside; RN Reviewed Strip (Jordyn Connell RN) LaborFlag: Antepartum (QS system process) Datetime: 11/09/2016 03:07 I/O Interventions: Up to BR (Jordyn Connell RN) Datetime: 11/09/2016 03:00 Stage of : Antepartum (Jordyn Connell RN) Monitor Mode: External; Palpation (Jordyn Connell RN) Frequency (min): 2-3 (Jordyn Connell RN) Quality: Mild/Moderate (Jordyn Connell RN) Duration (sec): 50-90 (Jordyn Connell RN) Pattern: Normal: <= 5 Contractions in 10 Minutes (Jordyn Connell RN) Contraction Comments: RN adjusting toco to try and obtain adequate tracing (Jordyn Connell RN) Monitor Mode: External US (Jordyn Connell RN) Monitor Interventions for FHR: Ultrasound Adjusted (Jordyn Connell, RN) FHR Baseline Rate : 140 (Jordyn Connell, RN) Variability: Moderate 6-25 bpm (Jordyn Connell, RN) Accelerations: None (Jordyn Connell, RN) Decelerations: None (Jordyn Connell, RN) Pitocin (milliunit): Pitocin Increased to (milliunits) @ 8 (Jordyn Connell, RN) Communication: RN at Bedside; RN Reviewed Strip (Jordyn Connell, RN) Datetime: 11/09/2016 02:56 Monitor Interventions for UA: [place] Adjusted (Jordyn Connell, RN) Datetime: 11/09/2016 02:48 NBP Sys/Nyla/Mean (mmHg): 91 (QS system process) : 52 (QS system process) : 66 (QS system process) Pulse: 73 (QS system process) LaborFlag: Antepartum (QS system process) Datetime: 11/09/2016 02:45 Stage of : Antepartum (Jordyn Connell, RN) Monitor Mode: External (Jordyn Connell, RN) Contraction Comments: UTD due to contractions not tracing (Jordyn Connell, RN) Monitor Mode: External US (Jordyn Connell, RN) FHR Baseline Rate : 140 (Jordyn Connell, RN) Variability: Moderate 6-25 bpm (Jordyn Connell, RN) Accelerations: 10X10 (Jordyn Connell, RN) Decelerations: None (Jordyn Connell, RN) Communication: RN Reviewed Strip (Jordyn Connell, RN) Datetime: 11/09/2016 02:30 Stage of : Antepartum (Jordyn Connell, RN) Respirations: 18 (Jordyn Connell, RN) Monitor Mode: External; Palpation (Jordyn Connell, RN) Frequency (min): 2-4 (Jordyn Connell, RN) Quality: Mild/Moderate (Jordyn Connell, RN) Duration (sec): 60-80 (Jordyn Connell, RN) Pattern: Normal: <= 5 Contractions in 10 Minutes (Jordyn Connell, RN) Resting Tone (Palpate): Relaxed (Jordyn Connell, RN) Monitor Mode: External US (Jordyn Connell RN) FHR Baseline Rate : 140 (Jordyn Connell RN) Variability: Moderate 6-25 bpm (Jordyn Connell RN) Accelerations: 15X15 (Jordyn Connell RN) Decelerations: None (Jordyn Connell RN) Pain Scale: 3 (Jordyn Connell RN) Pain Presence: Intermittent (Jordyn Connell RN) Pain Type: Contraction (Jordyn Connell RN) Pain Location: Abdomen (Jordyn Connell RN) Pain Goal: 1 (Jordyn Connell RN) Pain Relief Measures: Comfort Measures (Jordyn Connell RN) Pain Coping: Sleeping (Jordyn Connell RN) Comfort Measures: Breathing/Relaxation; Family Support (Jordyn Connell RN) Communication: RN at Bedside; RN Reviewed Strip (Jordyn Connell RN) LaborFlag: Antepartum (QS system process) Datetime: 11/09/2016 02:23 Monitor Interventions for UA: [place] Adjusted (Jordyn Connell RN) Pitocin (milliunit): Pitocin Increased to (milliunits) @ 6 (Jordyn Connell RN) Datetime: 11/09/2016 02:18 NBP Sys/Nyla/Mean (mmHg): 99 (QS system process) : 52 (QS system process) : 71 (QS system process) Pulse: 72 (QS system process) LaborFlag: Antepartum (QS system process) Datetime: 11/09/2016 02:15 Stage of : Antepartum (Jordyn Connell, RN) Monitor Mode: External (Jordyn Connell, RN) Frequency (min): 1.5-3 (Jordyn Connell, RN) Quality: Mild (Jordyn Connell, RN) Duration (sec): 50-80 (Jordyn Connell, RN) Pattern: Normal: <= 5 Contractions in 10 Minutes (Jordyn Connell, RN) Monitor Mode: External US (Jordyn Connell, RN) FHR Baseline Rate : 140 (Jordyn Connell, RN) Variability: Moderate 6-25 bpm (Jordyn Connell, RN) Accelerations: None (Jordyn Connell, RN) Decelerations: None (Jordyn Connell, RN) Communication: RN at Bedside; RN Reviewed Strip (Jordyn Connell, RN) Datetime: 11/09/2016 02:00 Stage of : Antepartum (Ojrdyn Connell, RN) Monitor Mode: External; Palpation (Jordyn Connell, RN) Frequency (min): 2-3 (Jordyn Connell, RN) Quality: Mild/Moderate (Jordyn Connell, RN) Pattern: Normal: <= 5 Contractions in 10 Minutes (Jordyn Connell, RN) Resting Tone (Palpate): Relaxed (Jordyn Connell, RN) Contraction Comments: Contractions palpated, RN adjusted toco multiple times (Jordyn Connell, RN) Monitor Mode: External US (Jordyn Connell, RN) FHR Baseline Rate : 140 (Jordyn Connell, RN) Variability: Moderate 6-25 bpm (Jordyn Connell, RN) Accelerations: 15X15 (Jordyn Connell, RN) Decelerations: None (Jordyn Connell, RN) Communication: RN at Bedside; RN Reviewed Strip (Jordyn Connell, RN) Datetime: 11/09/2016 01:59 Monitor Interventions for UA: [place] Adjusted (Jordyn Connell, RN) Datetime: 11/09/2016 01:58 Monitor Interventions for UA: [place] Adjusted (Jordyn Connell, RN) Datetime: 11/09/2016 01:55 Monitor Interventions for UA: [place] Adjusted (Jordyn Connell, RN) Datetime: 11/09/2016 01:54 Pitocin (milliunit): Pitocin Increased to (milliunits) @ 4 (Jordyn Connell, RN) Datetime: 11/09/2016 01:48 NBP Sys/Nyla/Mean (mmHg): 110 (QS system process) : 62 (QS system process) : 80 (QS system process) Pulse: 76 (QS system process) LaborFlag: Antepartum (QS system process) Datetime: 11/09/2016 01:45 Stage of : Antepartum (Jordyn Connell, RN) Monitor Mode: External; Palpation (Jordyn Connell, RN) Frequency (min): 2-4 (Jordyn Connell, RN) Quality: Mild/Moderate (Jordyn Connell, RN) Duration (sec): 60-90 (Jordyn Connell, RN) Pattern: Normal: <= 5 Contractions in 10 Minutes (Jordyn Connell, RN) Resting Tone (Palpate): Relaxed (Jordyn Connell, RN) Monitor Mode: External US (Jordyn Connell, RN) FHR Baseline Rate : 140 (Jordyn Connell, RN) Variability: Moderate 6-25 bpm (Jordyn Connell, RN) Accelerations: 15X15 (Jordyn Connell, RN) Decelerations: None (Jordyn Connell, RN) Communication: RN at Bedside; RN Reviewed Strip (Jordyn Connell, RN) Datetime: 11/09/2016 01:30 Stage of : Antepartum (Ojrdyn Connell, RN) Monitor Mode: External (Jordyn Connell, RN) Frequency (min): 2-4 (Jordyn Connell, RN) Quality: Mild (Jordyn Connell, RN) Duration (sec): 70-90 (Jordyn Connell, RN) Pattern: Normal: <= 5 Contractions in 10 Minutes (Jordyn Connell, RN) Monitor Mode: External US (Jordyn Connell, RN) FHR Baseline Rate : 150 (Jordyn Connell, RN) Variability: Moderate 6-25 bpm (Jordyn Connell, RN) Accelerations: 10X10 (Jordyn Connell, RN) Decelerations: None (Jordyn Connell, RN) Communication: RN at Bedside; RN Reviewed Strip (Jordyn Connell, RN) Datetime: 11/09/2016 01:29 Patient Position/Activity: Left Lateral; Semi-Fowlers (Jordyn Connell, RN) Datetime: 11/09/2016 01:27 Respirations: 18 (Jordyn Connell, RN) Temperature (F): 97.7 (Jordyn Connell, RN) Temperature (C): 36.5 (QS system process) Pain Scale: 3 (Jordyn Connell, RN) Pain Presence: Intermittent (Jordyn Connell, RN) Pain Type: Contraction (Jordyn Connell, RN) Pain Location: Abdomen (Jordyn Connell, RN) Pain Goal: 1 (Jordyn Connell, RN) Pain Relief Measures: Comfort Measures (Jordyn Connell, RN) Pain Coping: Talking Through Contractions (Jordyn Connell, RN) Comfort Measures: Breathing/Relaxation; Family Support (Jordyn Connell, RN) LaborFlag: Antepartum (QS system process) Datetime: 11/09/2016 01:19 Pitocin (milliunit): Pitocin Started (milliunits) @ 2 (Jordyn Connell, RN) Datetime: 11/09/2016 01:18 NBP Sys/Nyla/Mean (mmHg): 146 (QS system process) : 89 (QS system process) : 112 (QS system process) Pulse: 84 (QS system process) LaborFlag: Antepartum (QS system process) Datetime: 11/09/2016 01:15 Stage of : Antepartum (Jordyn Connell, RN) Respirations: 18 (Jordyn Connell, RN) Monitor Mode: External; Palpation (Jordyn Connell, RN) Frequency (min): 1.5-3 (Jordyn Connell, RN) Quality: Mild/Moderate (Jordyn Connell, RN) Duration (sec): 60-120 (Jordyn Connell, RN) Pattern: Normal: <= 5 Contractions in 10 Minutes (Jordyn Connell, RN) Resting Tone (Palpate): Relaxed (Jordyn Connell, RN) Monitor Mode: External US (Jordyn Connell, RN) FHR Baseline Rate : 150 (Jordyn Connell, RN) Variability: Moderate 6-25 bpm (Jordyn Connell, RN) Accelerations: 10X10 (Jordyn Connell, RN) Comments: UTD if decels present during broken tracing (Jordyn Connell, RN) Pain Scale: 3 (Jordyn Connell, RN) Pain Presence: Intermittent (Jordyn Connell, RN) Pain Type: Contraction (Jordyn Connell, RN) Pain Location: Abdomen (Jordyn Connell RN) Pain Goal: 1 (Jordyn Connell RN) Pain Relief Measures: Comfort Measures (Jordyn Connell RN) Pain Coping: Talking Through Contractions (Jordyn Connell RN) Comfort Measures: Breathing/Relaxation; Family Support (Jordyn Connell RN) Communication: RN at Bedside; RN Reviewed Strip (Jordyn Connell RN) LaborFlag: Antepartum (QS system process) Datetime: 11/09/2016 01:10 I/O Interventions: Up to BR (Jordyn Connell RN) Datetime: 11/09/2016 01:03 Communication: Provider Orders Received (Jordyn Connell RN) Communication Comments: Report given to Dr Ramos Re: Patient cervical exams, start Pitocin per protocol. (Jordyn Connell RN) Datetime: 11/09/2016 00:52 Monitor Interventions for FHR: Ultrasound Adjusted (Jordyn Connell, RN) Datetime: 11/09/2016 00:48 Dilatation (cm): 2.0 (Jordyn Connell, RN) Effacement (%): 70 (Jordyn Connell, RN) Station: -1 (Jordyn Connell, RN) Exam by: B Connell, RN (Jordyn Connell, RN) Vaginal Bleeding: None (Jordyn Connell, RN) Cervix, Consistency: Moderate (Jordyn Connell, RN) Cervix, Position: Midposition (Jordyn Connell, RN) Datetime: 11/09/2016 00:45 Stage of : Antepartum (Jordyn Connell, RN) Monitor Mode: External (Jordyn Connell, RN) Frequency (min): 2-4 (Jordyn Connell, RN) Quality: Mild (Jordyn Connell, RN) Duration (sec): 40-80 (Jordyn Connell, RN) Pattern: Normal: <= 5 Contractions in 10 Minutes (Jordyn Connell, RN) Monitor Mode: External US (Jordyn Connell, RN) Monitor Interventions for FHR: Ultrasound Adjusted (Jordyn Connell, RN) FHR Baseline Rate : 140 (Jordyn Connell, RN) Variability: Moderate 6-25 bpm (Jordyn Connell, RN) Accelerations: 15X15 (Jordyn Connell, RN) Comments: UTD if decels present during broken tracing (Jordyn Connell, RN) Communication: RN at Bedside; RN Reviewed Strip (Jordyn Connell, RN) Datetime: 11/09/2016 00:29 I/O Interventions: Up to BR (Jordyn Connell, RN) Datetime: 11/09/2016 00:15 Stage of : Antepartum (Jordyn Connell, RN) Monitor Mode: External (Jordyn Connell, RN) Frequency (min): 2-3 (Jordyn Connell, RN) Quality: Mild (Jordyn Connell, RN) Duration (sec): 60-100 (Jordyn Connell, RN) Pattern: Normal: <= 5 Contractions in 10 Minutes (Jordyn Connell, RN) Monitor Mode: External US (Jordyn Connell, RN) FHR Baseline Rate : 140 (Jordyn Connell, RN) Variability: Moderate 6-25 bpm (Jordyn Connell, RN) Accelerations: 15X15 (Jordyn Connell, RN) Decelerations: None (Jordyn Connell, RN) Communication: RN Reviewed Strip (Jordyn Connell, RN) Datetime: 11/08/2016 23:50 I/O Interventions: Up to BR (Jordyn Connell, RN) Datetime: 11/08/2016 23:45 Stage of : Antepartum (Jordyn Connell, RN) Monitor Mode: External (Jordyn Connell, RN) Frequency (min): 3-5 (Jordyn Connell, RN) Quality: Mild (Jordyn Connell, RN) Duration (sec): 60-90 (Jordyn Connell, RN) Pattern: Normal: <= 5 Contractions in 10 Minutes (Jordyn Connell, RN) Resting Tone (Palpate): Relaxed (Jordyn Connell, RN) Monitor Mode: External US (Jordyn Connell, RN) FHR Baseline Rate : 130 (Jordyn Connell, RN) Variability: Moderate 6-25 bpm (Jordyn Connell, RN) Accelerations: 15X15 (Jordyn Connell, RN) Decelerations: None (Jordyn Connell, RN) Communication: RN at Bedside; RN Reviewed Strip (Jordyn Connell, RN) Datetime: 11/08/2016 23:15 Stage of : Antepartum (Jordyn Connell, RN) Monitor Mode: External; Palpation (Jordyn Connell, RN) Frequency (min): 1.5-6 (Jordyn Connell, RN) Quality: Mild (Jordyn Connell, RN) Duration (sec): 40-100 (Jordyn Connell, RN) Pattern: Normal: <= 5 Contractions in 10 Minutes (Jordyn Connell, RN) Resting Tone (Palpate): Relaxed (Jordyn Connell, RN) Monitor Mode: External US (Jordyn Connell, RN) FHR Baseline Rate : 120 (Jordyn Connell, RN) Variability: Moderate 6-25 bpm (Jordyn Connell, RN) Accelerations: 15X15 (Jordyn Connell, RN) Decelerations: None (Jordyn Connell RN) Communication: RN at Bedside; RN Reviewed Strip (Jordyn Connell RN) Datetime: 11/08/2016 22:45 Stage of : Antepartum (Jordyn Connell RN) Respirations: 18 (Jordyn Connell RN) Monitor Mode: External; Palpation (Jordyn Connell RN) Frequency (min): 1-5 (Jordyn Connell RN) Quality: Mild (Jordyn Connell RN) Duration (sec): 60-90 (Jordyn Connell RN) Pattern: Normal: <= 5 Contractions in 10 Minutes (Jordyn Connell RN) Resting Tone (Palpate): Relaxed (Jordyn Connell RN) Monitor Mode: External US (Jordyn Connell RN) FHR Baseline Rate : 140 (Jordyn Connell RN) Variability: Moderate 6-25 bpm (Jordyn Connell RN) Accelerations: 15X15 (Jordyn Connell RN) Decelerations: None (Jordyn Connell RN) Pain Scale: 2 (Jordyn Connell RN) Pain Presence: Intermittent (Jordyn Connell RN) Pain Type: Cramping (Jordyn Connell RN) Pain Location: Abdomen (Jordyn Connell RN) Pain Goal: 1 (Jordyn Connell RN) Pain Relief Measures: Comfort Measures (Jordyn Connell RN) Pain Coping: Talking Through Contractions (Jordyn Connell RN) Patient Position/Activity: Right Tilt; Semi-Fowlers (Jordyn Connell RN) Comfort Measures: Breathing/Relaxation; Family Support (Jordyn Connell RN) Communication: RN at Bedside; RN Reviewed Strip (Jordyn Connell RN) LaborFlag: Antepartum (QS system process)
[2016-11-09 08:05] LABS: ALANINE AMINOTRANSFERASE 22 U/L (9-52); ALBUMIN 3.2 g/dL (3.5-5.0); ALKALINE PHOSPHATASE 176 U/L (38-126); ANION GAP 8 (5-19); ASPARTATE AMINO TRANSFERASE 14 U/L (14-36); BILIRUBIN,TOTAL 0.6 mg/dL (0.2-1.3); BLOOD UREA NITROGEN 6 mg/dL (7-20); CALCIUM 9.3 mg/dL (8.4-10.2); CARBON DIOXIDE 24 mmol/L (22-30); CHLORIDE 105 mmol/L (98-107); GLUCOSE 88 mg/dL (75-110); LDH 371 U/L (313-618); SODIUM 137.2 mmol/L (137-145); TOTAL PROTEIN 6.3 g/dL (6.3-8.2); URIC ACID 4.3 mg/dL (2.5-6.2)
--- NOTE | 2016-11-09 10:00 | L&D Flow Sheet ---
LD Flowsheet Datetime Report Generated by CPN: 11/09/2016 10:00 Datetime: 11/09/2016 09:55 NBP Sys/Nyla/Mean (mmHg): 109 (QS system process) : 58 (QS system process) : 80 (QS system process) Pulse: 72 (QS system process) LaborFlag: Antepartum (QS system process) Datetime: 11/09/2016 09:50 Temperature (F): 98.2 (Melody Gibson RN) Temperature (C): 36.8 (QS system process) LaborFlag: Antepartum (QS system process) Datetime: 11/09/2016 09:45 Monitor Mode: External; Palpation (Melody Arthur, RN) Frequency (min): 1-3 (Melody Arthur, RN) Quality: Mild/Moderate (Melody Arthur, RN) Duration (sec): 60-90 (Melody Arthur, RN) Resting Tone (Palpate): Relaxed (Melody Arthur, RN) Monitor Mode: External US (Melody Arthur, RN) FHR Baseline Rate : 140 (Melody Arthur, RN) Variability: Moderate 6-25 bpm (Melody Arthur, RN) Accelerations: 15X15 (Melody Arthur, RN) Decelerations: None (Melody Arthur, RN) Datetime: 11/09/2016 09:41 NBP Sys/Nyla/Mean (mmHg): 110 (QS system process) : 61 (QS system process) : 80 (QS system process) Pulse: 73 (QS system process) LaborFlag: Antepartum (QS system process) Datetime: 11/09/2016 09:30 Monitor Mode: External; Palpation (Melody Arthur, RN) Frequency (min): 2-4 (Melody Arthur, RN) Quality: Mild/Moderate (Melody Arthur, RN) Duration (sec): 6-080 (Melody Arthur, RN) Resting Tone (Palpate): Relaxed (Melody Arthur, RN) Monitor Mode: External US (Melody Arthur, RN) FHR Baseline Rate : 145 (Melody Arthur, RN) Variability: Moderate 6-25 bpm (Melody Arthur, RN) Accelerations: 10X10 (Melody Arthur, RN) Decelerations: None (Melody Arthur, RN) Datetime: 11/09/2016 09:25 NBP Sys/Nyla/Mean (mmHg): 115 (QS system process) : 58 (QS system process) : 80 (QS system process) Pulse: 73 (QS system process) LaborFlag: Antepartum (QS system process) Datetime: 11/09/2016 09:18 Pitocin (milliunit): Pitocin Increased to (milliunits) @ 16 (Melody Arthur, RN) Datetime: 11/09/2016 09:17 Patient Position/Activity: Left Lateral (Melody Arthur, RN) Datetime: 11/09/2016 09:15 Monitor Mode: External (Melody Arthur, RN) Frequency (min): 2-4 (Melody Arthur, RN) Quality: Mild/Moderate (Melody Arthur, RN) Duration (sec): 60-80 (Melody Arthur, RN) Resting Tone (Palpate): Relaxed (Melody Arthur, RN) Monitor Mode: External US (Melody Arthur, RN) FHR Baseline Rate : 140 (Melody Arthur, RN) Variability: Moderate 6-25 bpm (Melody Arthur, RN) Accelerations: 15X15 (Melody Arthur, RN) Decelerations: None (Melody Arthur, RN) Datetime: 11/09/2016 09:11 NBP Sys/Nyla/Mean (mmHg): 109 (QS system process) : 58 (QS system process) : 77 (QS system process) Pulse: 77 (QS system process) LaborFlag: Antepartum (QS system process) Datetime: 11/09/2016 09:00 Monitor Mode: External (Melody Arthur, RN) Frequency (min): 1-3 (Melody Arthur, RN) Quality: Mild/Moderate (Melody Arthur, RN) Duration (sec): 60-80 (Melody Arthur, RN) Resting Tone (Palpate): Relaxed (Melody Arthur, RN) Monitor Mode: External US (Melody Arthur, RN) FHR Baseline Rate : 140 (Melody Arthur, RN) Variability: Minimal - Undetectable to <=5 bpm (Melody Arthur, RN) Accelerations: None (Melody Arthur, RN) Decelerations: None (Melody Arthur, RN) Datetime: 11/09/2016 08:56 NBP Sys/Nyla/Mean (mmHg): 115 (QS system process) : 60 (QS system process) : 82 (QS system process) Pulse: 88 (QS system process) LaborFlag: Antepartum (QS system process) Datetime: 11/09/2016 08:51 Pitocin (milliunit): Pitocin Increased to (milliunits) @ 14 (Melody Arthur, RN) Datetime: 11/09/2016 08:45 Monitor Mode: External; Palpation (Meloyd Arthur, RN) Frequency (min): 2-4 (Melody Arthur, RN) Quality: Mild/Moderate (Melody Arthur, RN) Duration (sec): 60-80 (Melody Arthur, RN) Resting Tone (Palpate): Relaxed (Melody Arthur, RN) Monitor Mode: External US (Melody Arthur, RN) FHR Baseline Rate : 130 (Melody Arthur, RN) Variability: Minimal - Undetectable to <=5 bpm (Melody Arthur, RN) Accelerations: None (Melody Arthur, RN) Decelerations: None (Melody Arthur, RN) Datetime: 11/09/2016 08:40 NBP Sys/Nyla/Mean (mmHg): 116 (QS system process) : 61 (QS system process) : 81 (QS system process) Pulse: 80 (QS system process) LaborFlag: Antepartum (QS system process) Datetime: 11/09/2016 08:30 Monitor Mode: External; Palpation (Melody Arthur, RN) Frequency (min): 3-4 (Melody Arthur, RN) Quality: Mild/Moderate (Melody Arthur, RN) Duration (sec): 60-90 (Melody Arthur, RN) Resting Tone (Palpate): Relaxed (Melody Arthur, RN) Monitor Mode: External US (Melody Arthur, RN) FHR Baseline Rate : 125 (Melody Arthur, RN) Variability: Minimal - Undetectable to <=5 bpm (Melody Arthur, RN) Accelerations: None (Melody Arthur, RN) Decelerations: None (Melody Arthur, RN) Datetime: 11/09/2016 08:27 Pain Scale: 0 (Melody Arthur, RN) Pain Assessment Comments: pt states she has not felt a ctx since epidural placement (Melody Arthur, RN) LaborFlag: Antepartum (QS system process) Datetime: 11/09/2016 08:24 NBP Sys/Nyla/Mean (mmHg): 125 (QS system process) : 65 (QS system process) : 88 (QS system process) Pulse: 89 (QS system process) LaborFlag: Antepartum (QS system process) Datetime: 11/09/2016 08:23 Pitocin (milliunit): Pitocin Increased to (milliunits) @ 12 (Melody Arthur, RN) Datetime: 11/09/2016 08:21 I/O Interventions: Menendez Cath Inserted (Melody Arthur, RN) Datetime: 11/09/2016 08:19 NBP Sys/Nyla/Mean (mmHg): 129 (QS system process) : 64 (QS system process) : 89 (QS system process) Pulse: 80 (QS system process) LaborFlag: Antepartum (QS system process) Datetime: 11/09/2016 08:18 NBP Sys/Nyla/Mean (mmHg): 129 (QS system process) : 65 (QS system process) : 89 (QS system process) Pulse: 90 (QS system process) LaborFlag: Antepartum (QS system process) Datetime: 11/09/2016 08:17 NBP Sys/Nyla/Mean (mmHg): 131 (QS system process) : 67 (QS system process) : 92 (QS system process) Pulse: 78 (QS system process) LaborFlag: Antepartum (QS system process) Datetime: 11/09/2016 08:16 NBP Sys/Nyla/Mean (mmHg): 137 (QS system process) : 73 (QS system process) : 100 (QS system process) Pulse: 71 (QS system process) Patient Position/Activity: Left Tilt (Melody Arthur, RN) LaborFlag: Antepartum (QS system process) Datetime: 11/09/2016 08:15 NBP Sys/Nyla/Mean (mmHg): 132 (QS system process) : 89 (QS system process) : 102 (QS system process) Pulse: 75 (QS system process) Monitor Mode: External (Melody Arthur, RN) Frequency (min): 2-3 (Melody Arthur, RN) Quality: Mild/Moderate (Melody Arthur, RN) Duration (sec): 60-90 (Melody Arthur, RN) Resting Tone (Palpate): Relaxed (Melody Arthur, RN) Comments: unable to determine due to pt sitting up for epidural (Melody Arthur, RN) LaborFlag: Antepartum (QS system process) Datetime: 11/09/2016 08:14 NBP Sys/Nyla/Mean (mmHg): 125 (QS system process) : 82 (QS system process) : 97 (QS system process) Pulse: 90 (QS system process) LaborFlag: Antepartum (QS system process) Datetime: 11/09/2016 08:13 NBP Sys/Nyla/Mean (mmHg): 145 (QS system process) : 80 (QS system process) : 105 (QS system process) Pulse: 86 (QS system process) LaborFlag: Antepartum (QS system process) Datetime: 11/09/2016 08:12 Epidural Procedure: Cath Placed (Melody Arthur, RN) Datetime: 11/09/2016 08:11 NBP Sys/Nyla/Mean (mmHg): 153 (QS system process) : 82 (QS system process) : 110 (QS system process) Pulse: 80 (QS system process) Epidural Procedure: Test Dose (Melody Arthur, RN) LaborFlag: Antepartum (QS system process) Datetime: 11/09/2016 08:02 Anesthesia Comments: Dr. Ayon at bedside (Melody Arthur, RN) Datetime: 11/09/2016 08:00 Monitor Mode: External (Melody Arthur, RN) Frequency (min): irreg (Melody Gibson RN) Quality: Mild/Moderate (Melody Gibson RN) Resting Tone (Palpate): Relaxed (Melody Gibson RN) Monitor Mode: External US (Melody Gibson RN) FHR Baseline Rate : 120 (Melody Gibson RN) Variability: Moderate 6-25 bpm (Melody Gibson RN) Accelerations: None (Melody Gibson RN) Decelerations: None (Melody Gibson RN) Patient Care Comments: pt sitting up for epidural placement (Melody Gibson RN)
--- NOTE | 2016-11-09 12:00 | L&D Flow Sheet ---
LD Flowsheet Datetime Report Generated by CPN: 11/09/2016 12:00 Datetime: 11/09/2016 11:54 NBP Sys/Nyla/Mean (mmHg): 103 (QS system process) : 56 (QS system process) : 73 (QS system process) Pulse: 80 (QS system process) Pitocin (milliunit): Pitocin Increased to (milliunits) @ 20 (Melody Arthur, RN) LaborFlag: Antepartum (QS system process) Datetime: 11/09/2016 11:52 Patient Position/Activity: Right Lateral; Peanut Ball (Melody Arthur, RN) Datetime: 11/09/2016 11:51 Dilatation (cm): 3.5 (Melody Arthur, RN) Effacement (%): 80 (Melody Arthur, RN) Station: -1 (Melody Arthur, RN) Exam by: A. Arthur RN (Melody Arthur, RN) Datetime: 11/09/2016 11:39 NBP Sys/Nyla/Mean (mmHg): 106 (QS system process) : 60 (QS system process) : 76 (QS system process) Pulse: 68 (QS system process) LaborFlag: Antepartum (QS system process) Datetime: 11/09/2016 11:30 Monitor Mode: External; Palpation (Melody Arthur, RN) Frequency (min): 2-4 (Melody Arthur, RN) Quality: Mild/Moderate (Melody Arthur, RN) Duration (sec): 60-80 (Melody Arthur, RN) Resting Tone (Palpate): Relaxed (Melody Arthur, RN) Monitor Mode: External US (Melody Arthur, RN) FHR Baseline Rate : 125 (Melody Arthur, RN) Variability: Moderate 6-25 bpm (Melody Arthur, RN) Accelerations: None (Melody Arthur, RN) Decelerations: None (Melody Arthur, RN) Datetime: 11/09/2016 11:24 NBP Sys/Nyla/Mean (mmHg): 106 (QS system process) : 60 (QS system process) : 77 (QS system process) Pulse: 62 (QS system process) LaborFlag: Antepartum (QS system process) Datetime: 11/09/2016 11:15 Monitor Mode: External; Palpation (Melody Arthur, RN) Frequency (min): irreg (Melody Arthur, RN) Quality: Mild/Moderate (Melody Arthur, RN) Resting Tone (Palpate): Relaxed (Melody Arthur, RN) Monitor Mode: External US (Melody Arthur, RN) FHR Baseline Rate : 125 (Melody Arthur, RN) Variability: Moderate 6-25 bpm (Melody Arthur, RN) Accelerations: None (Melody Arthur, RN) Decelerations: None (Melody Arthur, RN) Datetime: 11/09/2016 11:09 NBP Sys/Nyla/Mean (mmHg): 113 (QS system process) : 65 (QS system process) : 83 (QS system process) Pulse: 66 (QS system process) Pitocin (milliunit): Pitocin Increased to (milliunits) @ 18 (Melody Arthur, RN) LaborFlag: Antepartum (QS system process) Datetime: 11/09/2016 11:04 Comments: RN remains at bedside assessing FHTs (Melody Arthur, RN) Datetime: 11/09/2016 11:00 Monitor Mode: External; Palpation (Melody Arthur, RN) Frequency (min): 2-4 (Melody Arthur, RN) Quality: Mild/Moderate (Melody Arthur, RN) Duration (sec): 60-80 (Melody Arthur, RN) Resting Tone (Palpate): Relaxed (Melody Arthur, RN) Monitor Mode: External US (Melody Arthur, RN) FHR Baseline Rate : 120 (Melody Arthur, RN) Variability: Minimal - Undetectable to <=5 bpm (Melody Arthur, RN) Accelerations: 10X10 (Melody Arthur, RN) Decelerations: None (Melody Arthur, RN) Datetime: 11/09/2016 10:58 Patient Position/Activity: Left Lateral; Peanut Ball (Melody Arthur, RN) Datetime: 11/09/2016 10:54 NBP Sys/Nyla/Mean (mmHg): 105 (QS system process) : 59 (QS system process) : 74 (QS system process) Pulse: 78 (QS system process) LaborFlag: Antepartum (QS system process) Datetime: 11/09/2016 10:45 Monitor Mode: Palpation (Melody Arthur, RN) Frequency (min): 2-5 (Melody Arthur, RN) Quality: Mild/Moderate (Melody Arthur, RN) Duration (sec): 60-80 (Melody Arthur, RN) Resting Tone (Palpate): Relaxed (Melody Arthur, RN) Monitor Mode: External US (Melody Arthur, RN) FHR Baseline Rate : 125 (Melody Arthur, RN) Variability: Moderate 6-25 bpm (Melody Arthur, RN) Accelerations: 15X15 (Melody Arthur, RN) Decelerations: None (Melody Arthur, RN) Datetime: 11/09/2016 10:39 NBP Sys/Nyla/Mean (mmHg): 106 (QS system process) : 55 (QS system process) : 74 (QS system process) Pulse: 81 (QS system process) LaborFlag: Antepartum (QS system process) Datetime: 11/09/2016 10:30 Monitor Mode: External; Palpation (Melody Arthur, RN) Frequency (min): 2-4 (Melody Arthur, RN) Quality: Mild/Moderate (Melody Arthur, RN) Duration (sec): 60-80 (Melody Arthur, RN) Resting Tone (Palpate): Relaxed (Melody Arthur, RN) Monitor Mode: External US (Melody Arthur, RN) FHR Baseline Rate : 135 (Melody Arthur, RN) Variability: Moderate 6-25 bpm (Melody Arthur, RN) Accelerations: None (Melody Arthur, RN) Decelerations: None (Melody Arthur, RN) Datetime: 11/09/2016 10:24 NBP Sys/Nyla/Mean (mmHg): 109 (QS system process) : 55 (QS system process) : 78 (QS system process) Pulse: 81 (QS system process) LaborFlag: Antepartum (QS system process) Datetime: 11/09/2016 10:15 Monitor Mode: External; Palpation (Melody Arthur, RN) Frequency (min): 1-3 (Melody Arthur, RN) Quality: Mild/Moderate (Melody Arthur, RN) Duration (sec): 60-90 (Melody Arthur, RN) Resting Tone (Palpate): Relaxed (Melody Arthur, RN) Monitor Mode: External US (Melody Arthur, RN) FHR Baseline Rate : 130 (Melody Arthur, RN) Variability: Minimal - Undetectable to <=5 bpm (Melody Arthur, RN) Accelerations: None (Melody Arthur, RN) Decelerations: None (Melody Arthur, RN) Patient Position/Activity: Peanut Ball; Right Extreme (Melody Arthur, RN) Datetime: 11/09/2016 10:12 Communication: RN at Bedside (Melody Arthur, RN) Datetime: 11/09/2016 10:10 NBP Sys/Nyla/Mean (mmHg): 114 (QS system process) : 64 (QS system process) : 82 (QS system process) Pulse: 72 (QS system process) LaborFlag: Antepartum (QS system process) Datetime: 11/09/2016 10:00 Monitor Mode: External; Palpation (Melody Arthur, RN) Frequency (min): 1-4 (Melody Arthur, RN) Quality: Mild/Moderate (Melody Arthur, RN) Duration (sec): 60-90 (Melody Arthur, RN) Resting Tone (Palpate): Relaxed (Melody Arthur, RN) Monitor Mode: External US (Melody Arthur, RN) FHR Baseline Rate : 130 (Melody Arthur, RN) Variability: Minimal - Undetectable to <=5 bpm (Melody Arthur, RN) Accelerations: None (Melody Arthur, RN) Decelerations: None (Melody Arthur, RN)
--- NOTE | 2016-11-09 14:00 | L&D Flow Sheet ---
LD Flowsheet Datetime Report Generated by CPN: 11/09/2016 14:00 Datetime: 11/09/2016 13:56 NBP Sys/Nyla/Mean (mmHg): 109 (QS system process) : 61 (QS system process) : 79 (QS system process) Pulse: 75 (QS system process) LaborFlag: Antepartum (QS system process) Datetime: 11/09/2016 13:39 NBP Sys/Nyla/Mean (mmHg): 104 (QS system process) : 59 (QS system process) : 76 (QS system process) Pulse: 88 (QS system process) LaborFlag: Antepartum (QS system process) Datetime: 11/09/2016 13:34 Pitocin (milliunit): Pitocin Increased to (milliunits) @ 6 (Melody Arthur, RN) Datetime: 11/09/2016 13:24 NBP Sys/Nyla/Mean (mmHg): 102 (QS system process) : 58 (QS system process) : 74 (QS system process) Pulse: 86 (QS system process) LaborFlag: Antepartum (QS system process) Datetime: 11/09/2016 13:23 Temperature (F): 98.5 (Melody Arthur, RN) Temperature (C): 36.9 (QS system process) LaborFlag: Antepartum (QS system process) Datetime: 11/09/2016 13:16 Patient Care Comments: pt resting with eyes closed (Melody Arthur, RN) Datetime: 11/09/2016 13:15 Monitor Mode: External (Melody Arthur, RN) Frequency (min): irreg (Melody Arthur, RN) Quality: Mild/Moderate (Melody Arthur, RN) Resting Tone (Palpate): Relaxed (Melody Arthur, RN) Monitor Mode: External US (Melody Arthur, RN) FHR Baseline Rate : 120 (Melody Arthur, RN) Variability: Minimal - Undetectable to <=5 bpm (Melody Arthur, RN) Accelerations: None (Melody Arthur, RN) Decelerations: None (Melody Arthur, RN) Datetime: 11/09/2016 13:13 Pitocin (milliunit): Pitocin Increased to (milliunits) @ 4 (Melody Arthur, RN) Datetime: 11/09/2016 13:09 NBP Sys/Nyla/Mean (mmHg): 96 (QS system process) : 51 (QS system process) : 66 (QS system process) Pulse: 71 (QS system process) LaborFlag: Antepartum (QS system process) Datetime: 11/09/2016 13:00 Monitor Mode: External; Palpation (Melody Arthur, RN) Frequency (min): 4-5 (Melody Arthur, RN) Quality: Mild/Moderate (Melody Arthur, RN) Duration (sec): 90-100 (Melody Arthur, RN) Resting Tone (Palpate): Relaxed (Melody Arthur, RN) Monitor Mode: External US (Melody Arthur, RN) FHR Baseline Rate : 120 (Melody Arthur, RN) Variability: Moderate 6-25 bpm (Melody Arthur, RN) Accelerations: None (Melody Arthur, RN) Decelerations: None (Melody Arthur, RN) Datetime: 11/09/2016 12:55 NBP Sys/Nyla/Mean (mmHg): 95 (QS system process) : 48 (QS system process) : 69 (QS system process) Pulse: 76 (QS system process) LaborFlag: Antepartum (QS system process) Datetime: 11/09/2016 12:48 Pitocin (milliunit): Pitocin Started (milliunits) @ 2 (Melody Arthur, RN) Patient Position/Activity: Tailors (Melody Arthur, RN) Datetime: 11/09/2016 12:45 Monitor Mode: External (Melody Arthur, RN) Frequency (min): irreg (Melody Arthur, RN) Quality: Mild/Moderate (Melody Arthur, RN) Resting Tone (Palpate): Relaxed (Melody Arthur, RN) Monitor Mode: External US (Melody Arthur, RN) FHR Baseline Rate : 125 (Melody Arthur, RN) Variability: Moderate 6-25 bpm (Melody Arthur, RN) Accelerations: 15X15 (Melody Arthur, RN) Decelerations: None (Melody Arthur, RN) Datetime: 11/09/2016 12:39 NBP Sys/Nyla/Mean (mmHg): 97 (QS system process) : 56 (QS system process) : 71 (QS system process) Pulse: 86 (QS system process) LaborFlag: Antepartum (QS system process) Datetime: 11/09/2016 12:30 Monitor Mode: External (Melody Arthur, RN) Quality: Mild/Moderate (Melody Arthur, RN) Resting Tone (Palpate): Relaxed (Melody Arthur, RN) Contraction Comments: unable to determine due to pt position (Melody Arthur, RN) Monitor Mode: External US (Melody Arthur, RN) FHR Baseline Rate : 125 (Melody Arthur, RN) Variability: Moderate 6-25 bpm (Melody Arthur, RN) Accelerations: 15X15 (Melody Arthur, RN) Decelerations: None (Melody Arthur, RN) Datetime: 11/09/2016 12:24 NBP Sys/Nyla/Mean (mmHg): 96 (QS system process) : 53 (QS system process) : 71 (QS system process) Pulse: 72 (QS system process) LaborFlag: Antepartum (QS system process) Datetime: 11/09/2016 12:15 Monitor Mode: External; Palpation (Melody Arthur, RN) Quality: Mild/Moderate (Melody Arthur, RN) Resting Tone (Palpate): Relaxed (Melody Arthur, RN) Contraction Comments: unable to determine due to pt position (Melody Arthur, RN) Monitor Mode: External US (Melody Arthur, RN) FHR Baseline Rate : 125 (Melody Arthur, RN) Variability: Moderate 6-25 bpm (Melody Arthur, RN) Accelerations: 15X15 (Melody Arthur, RN) Decelerations: None (Melody Arthur, RN) Pitocin (milliunit): Pitocin Discontinued (Melody Arthur, RN) Datetime: 11/09/2016 12:09 NBP Sys/Nyla/Mean (mmHg): 100 (QS system process) : 58 (QS system process) : 74 (QS system process) Pulse: 71 (QS system process) LaborFlag: Antepartum (QS system process) Datetime: 11/09/2016 12:00 Monitor Mode: External; Palpation (Melody Arthur, RN) Frequency (min): irreg (Melody Arthur, RN) Quality: Mild/Moderate (Melody Arthur, RN) Resting Tone (Palpate): Relaxed (Melody Arthur, RN) Monitor Mode: External US (Melody Arthur, RN) FHR Baseline Rate : 135 (Melody Arthur, RN) Variability: Moderate 6-25 bpm (Melody Arthur, RN) Accelerations: 15X15 (Melody Arthur, RN) Decelerations: None (Melody Arthur, RN)
--- NOTE | 2016-11-09 16:00 | L&D Flow Sheet ---
LD Flowsheet Datetime Report Generated by CPN: 11/09/2016 16:00 Datetime: 11/09/2016 15:55 NBP Sys/Nyla/Mean (mmHg): 125 (QS system process) : 70 (QS system process) : 91 (QS system process) Pulse: 95 (QS system process) LaborFlag: Antepartum (QS system process) Datetime: 11/09/2016 15:48 Temperature (F): 97.9 (Melody Gibson RN) Temperature (C): 36.6 (QS system process) Pain Assessment Comments: pt states she is in no pain but feels pressure with ctx (Melody Gibson, RN) LaborFlag: Antepartum (QS system process) Datetime: 11/09/2016 15:45 Pitocin (milliunit): Pitocin Increased to (milliunits) @ 16 (Melody Gibson, RN) Datetime: 11/09/2016 15:39 NBP Sys/Nyla/Mean (mmHg): 119 (QS system process) : 69 (QS system process) : 89 (QS system process) Pulse: 86 (QS system process) LaborFlag: Antepartum (QS system process) Datetime: 11/09/2016 15:25 NBP Sys/Nyla/Mean (mmHg): 116 (QS system process) : 67 (QS system process) : 85 (QS system process) Pulse: 73 (QS system process) LaborFlag: Antepartum (QS system process) Datetime: 11/09/2016 15:24 Pitocin (milliunit): Pitocin Increased to (milliunits) @ 14 (Melody Arthur, RN) Datetime: 11/09/2016 15:09 NBP Sys/Nyla/Mean (mmHg): 116 (QS system process) : 71 (QS system process) : 87 (QS system process) Pulse: 82 (QS system process) LaborFlag: Antepartum (QS system process) Datetime: 11/09/2016 14:55 NBP Sys/Nyla/Mean (mmHg): 114 (QS system process) : 70 (QS system process) : 85 (QS system process) Pulse: 78 (QS system process) LaborFlag: Antepartum (QS system process) Datetime: 11/09/2016 14:48 Pitocin (milliunit): Pitocin Increased to (milliunits) @ 12 ([facility], RN) Datetime: 11/09/2016 14:40 NBP Sys/Nyla/Mean (mmHg): 112 (QS system process) : 68 (QS system process) : 84 (QS system process) Pulse: 82 (QS system process) LaborFlag: Antepartum (QS system process) Datetime: 11/09/2016 14:32 Communication Comments: Dr. Torrez and Isidro Tapia CNM on unit, FHR strip reviewed. No new orders at this time (Melody Arthur, RN) Datetime: 11/09/2016 14:30 Monitor Mode: External (Melody Arthur, RN) Frequency (min): 2-5 (Melody Arthur, RN) Quality: Mild/Moderate (Melody Arthur, RN) Duration (sec): 60-100 (Melody Arthur, RN) Resting Tone (Palpate): Relaxed (Melody Arthur, RN) Monitor Mode: External US (Melody Arthur, RN) FHR Baseline Rate : 125 (Melody Arthur, RN) Variability: Minimal - Undetectable to <=5 bpm (Melody Arthur, RN) Accelerations: None (Melody Arthur, RN) Decelerations: None (Melody Arthur, RN) Datetime: 11/09/2016 14:25 NBP Sys/Nyla/Mean (mmHg): 114 (QS system process) : 68 (QS system process) : 85 (QS system process) Pulse: 87 (QS system process) LaborFlag: Antepartum (QS system process) Datetime: 11/09/2016 14:20 Pitocin (milliunit): Pitocin Increased to (milliunits) @ 10 (Melody Arthur, RN) Datetime: 11/09/2016 14:15 Monitor Mode: External; Palpation (Melody Arthur, RN) Frequency (min): 4 (Melody Arthur, RN) Quality: Moderate (Melody Arthur, RN) Duration (sec): 80-90 (Melody Arthur, RN) Resting Tone (Palpate): Relaxed (Melody Arthur, RN) Monitor Mode: External US (Melody Arthur, RN) FHR Baseline Rate : 130 (Melody Arthur, RN) Variability: Moderate 6-25 bpm (Melody Arthur, RN) Accelerations: None (Melody Arthur, RN) Decelerations: None (Melody Arthur, RN) Datetime: 11/09/2016 14:11 NBP Sys/Nyla/Mean (mmHg): 104 (QS system process) : 60 (QS system process) : 75 (QS system process) Pulse: 82 (QS system process) LaborFlag: Antepartum (QS system process) Datetime: 11/09/2016 14:05 Pitocin (milliunit): Pitocin Increased to (milliunits) @ 8 (Melody Arthur, RN) Datetime: 11/09/2016 14:00 Monitor Mode: External; Palpation (Melody Arthur, RN) Frequency (min): 3-4 (Melody Arthur, RN) Quality: Moderate (Melody Arthur, RN) Duration (sec): 60-100 (Melody Arthur, RN) Resting Tone (Palpate): Relaxed (Melody Arthur, RN) Monitor Mode: External US (Melody Arthur, RN) FHR Baseline Rate : 130 (Melody Arthur, RN) Variability: Moderate 6-25 bpm (Melody Arthur, RN) Accelerations: None (Melody Arthur, RN) Decelerations: None (Melody Arthur, RN)
--- NOTE | 2016-11-09 16:23 | L&D Progress Notes ---
PROGRESS NOTES Datetime Report Generated by CPN: 11/09/2016 16:23 PROGRESS NOTE Impression: Normal Progression of Labor; Reassuring Heart Rate Procedures: Sterile Vag Exam Plan: Continue Present Management Comment: SVE Now complete at station 0. Will allow to labor down as baby doing well and patient is comfortable. VAGINAL EXAM Dilatation: 10 Effacement: 100 Station: 0 MEMBRANES Membranes: Ruptured Amniotic Fluid Color: Clear FETUS A FHR - Baseline: 135 Monitoring: External US Variability: Moderate 6-25bpm : 38.5 SIGNATURE SIGNATURE: [id number] SIGNATURE: [id number] SIGNATURE: [id number] SIGNATURE: [id number] Assignment: Shelia Torrez MD Signature: with User ID: PJones : with User ID: Jenny : I personally evaluated and examined the patient in conjunction with the MLP and agree with the assessment, treatment plan and disposition.
--- NOTE | 2016-11-09 18:00 | L&D Flow Sheet ---
LD Flowsheet Datetime Report Generated by CPN: 11/09/2016 18:00 Datetime: 11/09/2016 17:54 NBP Sys/Nyla/Mean (mmHg): 130 (QS system process) : 81 (QS system process) : 101 (QS system process) Pulse: 89 (QS system process) LaborFlag: Antepartum (QS system process) Datetime: 11/09/2016 17:45 Monitor Mode: External (Melody Arthur, RN) Frequency (min): 3-4 (Melody Arthur, RN) Quality: Moderate to Strong (Melody Arthur, RN) Duration (sec): 60-90 (Melody Arthur, RN) Resting Tone (Palpate): Relaxed (Melody Arthur, RN) Monitor Mode: External US (Melody Arthur, RN) FHR Baseline Rate : 140 (Melody Arthur, RN) Variability: Moderate 6-25 bpm (Melody Arthur, RN) Accelerations: None (Melody Arthur, RN) Decelerations: None (Melody Arthur, RN) Datetime: 11/09/2016 17:39 NBP Sys/Nyla/Mean (mmHg): 125 (QS system process) : 76 (QS system process) : 95 (QS system process) Pulse: 80 (QS system process) LaborFlag: Antepartum (QS system process) Datetime: 11/09/2016 17:37 Patient Position/Activity: Left Lateral; Peanut Ball (Melody Arthur, RN) Datetime: 11/09/2016 17:32 Pain Scale: 0 (Melody Arthur, RN) Dilatation (cm): 10.0 (Melody Arthur, RN) Effacement (%): 100 (Melody Arthur, RN) Station: 1 (Melody Arthur, RN) Exam by: Evie Gibson RN (Melody Arthur, RN) LaborFlag: Antepartum (QS system process) Datetime: 11/09/2016 17:30 Monitor Mode: External; Palpation (Melody Arthur, RN) Frequency (min): 3-4 (Melody Arthur, RN) Quality: Moderate to Strong (Melody Arthur, RN) Duration (sec): 60-90 (Melody Arthur, RN) Resting Tone (Palpate): Relaxed (Melody Arthur, RN) Monitor Mode: External US (Melody Arthur, RN) FHR Baseline Rate : 130 (Melody Arthur, RN) Variability: Minimal - Undetectable to <=5 bpm (Melody Arthur, RN) Accelerations: None (Melody Arthur, RN) Decelerations: None (Melody Arthur, RN) Datetime: 11/09/2016 17:25 NBP Sys/Nyla/Mean (mmHg): 127 (QS system process) : 81 (QS system process) : 99 (QS system process) Pulse: 93 (QS system process) LaborFlag: Antepartum (QS system process) Datetime: 11/09/2016 17:16 Anesthesia Comments: Dr. Ayon at bedside, new epidural bag hung (Melody Arthur, RN) Datetime: 11/09/2016 17:15 Monitor Mode: External (Melody Arthur, RN) Frequency (min): 3-4 (Melody Arthur, RN) Quality: Moderate to Strong (Melody Arthur, RN) Duration (sec): 70-90 (Melody Arthur, RN) Duration (sec): 70-100 (Melody Arthur, RN) Resting Tone (Palpate): Relaxed (Melody Arthur, RN) Monitor Mode: External US (Melody Arthur, RN) FHR Baseline Rate : 135 (Melody Artuhr, RN) Variability: Moderate 6-25 bpm (Melody Arthur, RN) Accelerations: 15X15 (Melody Arthur, RN) Accelerations: None (Melody Arthur, RN) Decelerations: None (Melody Arthur, RN) Datetime: 11/09/2016 17:10 NBP Sys/Nyla/Mean (mmHg): 132 (QS system process) : 83 (QS system process) : 102 (QS system process) Pulse: 95 (QS system process) LaborFlag: Antepartum (QS system process) Datetime: 11/09/2016 17:09 Communication Comments: Dr. Ayon called to be informed that epidural bag is out. stated he will be up shortly to replace bag (Melody Arthur, RN) Datetime: 11/09/2016 17:00 Monitor Mode: External (Melody Arthur, RN) Frequency (min): 2-3 (Melody Arthur, RN) Quality: Moderate to Strong (Melody Arthur, RN) Duration (sec): 70-100 (Melody Arthur, RN) Resting Tone (Palpate): Relaxed (Melody Arthur, RN) Monitor Mode: External US (Melody Arthur, RN) FHR Baseline Rate : 135 (Melody Arthur, RN) Variability: Moderate 6-25 bpm (Melody Arthur, RN) Accelerations: 15X15 (Melody Arthur, RN) Decelerations: None (Melody Arthur, RN) Datetime: 11/09/2016 16:55 NBP Sys/Nyla/Mean (mmHg): 121 (QS system process) : 72 (QS system process) : 91 (QS system process) Pulse: 98 (QS system process) LaborFlag: Antepartum (QS system process) Datetime: 11/09/2016 16:45 Monitor Mode: External (Melody Arthur, RN) Frequency (min): 2-3 (Melody Arthur, RN) Quality: Moderate to Strong (Melody Arthur, RN) Duration (sec): 60-90 (Melody Arthur, RN) Resting Tone (Palpate): Relaxed (Melody Arthur, RN) Monitor Mode: External US (Melody Arthur, RN) FHR Baseline Rate : 130 (Melody Arthur, RN) Variability: Moderate 6-25 bpm (Melody Arthur, RN) Accelerations: None (Melody Arthur, RN) Decelerations: None (Melody Arthur, RN) Datetime: 11/09/2016 16:39 NBP Sys/Nyla/Mean (mmHg): 134 (QS system process) : 80 (QS system process) : 98 (QS system process) Pulse: 110 (QS system process) LaborFlag: Antepartum (QS system process) Datetime: 11/09/2016 16:30 Monitor Mode: External; Palpation (Melody Arthur, RN) Frequency (min): 3-4 (Melody Arthur, RN) Quality: Moderate to Strong (Melody Arthur, RN) Duration (sec): 70-100 (Melody Arthur, RN) Resting Tone (Palpate): Relaxed (Melody Arthur, RN) Monitor Mode: External US (Melody Arthur, RN) FHR Baseline Rate : 135 (Melody Arthur, RN) Variability: Minimal - Undetectable to <=5 bpm (Melody Arthur, RN) Accelerations: None (Melody Arthur, RN) Decelerations: None (Melody Arthur, RN) Datetime: 11/09/2016 16:25 NBP Sys/Nyla/Mean (mmHg): 127 (QS system process) : 75 (QS system process) : 93 (QS system process) Pulse: 100 (QS system process) LaborFlag: Antepartum (QS system process) Datetime: 11/09/2016 16:17 Pitocin (milliunit): Pitocin Increased to (milliunits) @ 18 (Melody Arthur, RN) Datetime: 11/09/2016 16:15 Monitor Mode: External (Melody Arthur, RN) Frequency (min): 3-4 (Melody Arthur, RN) Quality: Moderate (Melody Arthur, RN) Duration (sec): 60-90 (Melody Arthur, RN) Resting Tone (Palpate): Relaxed (Melody Arthur, RN) Monitor Mode: External US (Melody Arthur, RN) FHR Baseline Rate : 130 (Melody Arthur, RN) Variability: Moderate 6-25 bpm (Melody Arthur, RN) Accelerations: 15X15 (Melody Arthur, RN) Decelerations: None (Melody Arthur, RN) Dilatation (cm): 10.0 (Melody Arthur, RN) Effacement (%): 100 (Melody Arthur, RN) Station: 0 (Melody Arthur, RN) Exam by: Isidro Tapia CNM (Melody Arthur, RN) Datetime: 11/09/2016 16:13 Communication Comments: Isidro Tapia CNM at bedside (Melody Arthur, RN) Datetime: 11/09/2016 16:10 NBP Sys/Nyla/Mean (mmHg): 123 (QS system process) : 72 (QS system process) : 91 (QS system process) Pulse: 86 (QS system process) LaborFlag: Antepartum (QS system process) Datetime: 11/09/2016 16:00 Monitor Mode: External; Palpation (Melody Arthur, RN) Frequency (min): 2-4 (Melody Arthur, RN) Quality: Moderate to Strong (Melody Arthur, RN) Duration (sec): 60-90 (Melody Arthur, RN) Resting Tone (Palpate): Relaxed (Melody Arthur, RN) Monitor Mode: External US (Melody Gibson RN) FHR Baseline Rate : 135 (Melody Gibson RN) Variability: Moderate 6-25 bpm (Melody Gibson RN) Accelerations: 15X15 (Melody Gibson RN) Decelerations: None (Melody Gibson RN)
[2016-11-09] MEDS ORDERED: LIDOCAINE 1% INJ-PF (10 MG/ML) 30 ML SDV ONE (18:02)
[2016-11-09] MEDS ORDERED: MISOPROSTOL 0.2 MG TABLET ONE (18:02)
[2016-11-09] MEDS ORDERED: LOPERAMIDE HCL 2 MG CAPSULE ONE (19:44)
[2016-11-09] MEDS ORDERED: CARBOPROST TROMETHAMINE INJ 250 MCG/1 ML AMPULE ONE (19:44)
--- NOTE | 2016-11-09 20:00 | L&D Flow Sheet ---
LD Flowsheet Datetime Report Generated by CPN: 11/09/2016 20:00 Datetime: 11/09/2016 19:54 NBP Sys/Nyla/Mean (mmHg): 135 (QS system process) : 66 (QS system process) : 95 (QS system process) LaborFlag: Antepartum (QS system process) Datetime: 11/09/2016 19:40 NBP Sys/Nyla/Mean (mmHg): 136 (QS system process) : 63 (QS system process) : 91 (QS system process) Pulse: 98 (QS system process) LaborFlag: Antepartum (QS system process) Datetime: 11/09/2016 19:30 Monitor Mode: External; Palpation (Yulissa Marciano, RNC) Frequency (min): 2.5-4 (Yulissa Marciano, RNC) Quality: Strong (Yulissa Marciano, RNC) Duration (sec): 60-90 (Yulissa Marciano, RNC) Duration Criteria: Less than Two 120 Second Contractions (Yulissa Marciano, RNC) Pattern: Normal: <= 5 Contractions in 10 Minutes (Yulissa Marciano, RNC) Resting Tone (Palpate): Relaxed (Yulissa Marciano, RNC) Monitor Mode: External US (Yulissa Marciano, RNC) FHR Baseline Rate : 145 (Yulissa Marciano, RNC) Variability: Moderate 6-25 bpm (Yulissa Marciano, RNC) Accelerations: None (Yulissa Marciano, RNC) Decelerations: None (Yulissa Marciano, RNC) Pushing Position: Pushing with Contractions (Yulissa Marciano, RNC) Pushing Progress: Descent with Pushing (Yulissa Marciano, RNC) Datetime: 11/09/2016 19:15 Monitor Mode: External; Palpation (Yulissa Marciano, RNC) Frequency (min): 4-5 (Yulissa Marciano, RNC) Quality: Strong (Yulissa Marciano, RNC) Duration (sec): 60-120 (Yulissa Marciano, RNC) Duration Criteria: Less than Two 120 Second Contractions (Yulissa Marciano, RNC) Pattern: Normal: <= 5 Contractions in 10 Minutes (Yulissa Marciano, RNC) Resting Tone (Palpate): Relaxed (Yulissa Marciano, RNC) Monitor Mode: External US (Yulissa Marciano, RNC) FHR Baseline Rate : 145 (Yulissa Marciano, RNC) Variability: Moderate 6-25 bpm (Yulissa Marciano, RNC) Accelerations: None (Yulissa Marciano, RNC) Decelerations: Early (Yulissa Marciano, RNC) Datetime: 11/09/2016 19:11 Pitocin (milliunit): Pitocin Increased to (milliunits) @ 28 (Melody Arthur, RN) Datetime: 11/09/2016 19:06 Communication Comments: Dr. Torrez at bedside (Melody Gibson, RN) Datetime: 11/09/2016 19:00 Monitor Mode: External; Palpation (Yulissa Marciano, RNC) Frequency (min): 3-5 (Yulissa Marciano, RNC) Quality: Mild/Moderate (Yulissa Marciano, RNC) Duration (sec): 60-90 (Yulissa Marciano, RNC) Duration Criteria: Less than Two 120 Second Contractions (Yulissa Marciano, RNC) Pattern: Normal: <= 5 Contractions in 10 Minutes (Yulissa Marciano, RNC) Resting Tone (Palpate): Relaxed (Yulissa Marciano, RNC) Monitor Mode: External US (Yulissa Marciano, RNC) FHR Baseline Rate : 135 (Yulissa Marciano, RNC) Variability: Moderate 6-25 bpm (Yulissa Marciaon, RNC) Accelerations: 15X15 (Yulissa Marciano, RNC) Decelerations: None (Yulissa Marciano, RNC) Pitocin (milliunit): Pitocin Increased to (milliunits) @ 26 (Melody Arthur, RN) Datetime: 11/09/2016 18:45 Monitor Mode: External; Palpation (Yulissa Marciano, RNC) Frequency (min): 3-4 (Yulissa Marciano, RNC) Quality: Moderate to Strong (Yulissa Marciano, RNC) Duration (sec): 60-90 (Yulissa Marciano, RNC) Duration Criteria: Less than Two 120 Second Contractions (Yulissa Marciano, RNC) Pattern: Normal: <= 5 Contractions in 10 Minutes (Yulissa Marciano, RNC) Resting Tone (Palpate): Relaxed (Yulissa Marciano, RNC) Monitor Mode: External US (Yulissa Marciano, RNC) FHR Baseline Rate : 135 (Yulissa Marciano, RNC) Variability: Moderate 6-25 bpm (Yulissa Marciano, RNC) Accelerations: 15X15 (Yulissa Marciano, RNC) Decelerations: None (Yulissa Marciano, RNC) Datetime: 11/09/2016 18:41 Pitocin (milliunit): Pitocin Increased to (milliunits) @ 24 (Melody Arthur, RN) Datetime: 11/09/2016 18:40 Stage of : Antepartum (Simi Li RN) NBP Sys/Nyla/Mean (mmHg): 124 (QS system process) : 58 (QS system process) : 84 (QS system process) Pulse: 81 (QS system process) LaborFlag: Antepartum (QS system process) Datetime: 11/09/2016 18:30 Monitor Mode: External; Palpation (Yulissa Marciano, RNC) Frequency (min): 2-2.5 (Yulissa Marciano, RNC) Quality: Mild/Moderate (Yulissa Marciano, RNC) Duration (sec): 60-90 (Yulissa Marciano, RNC) Duration Criteria: Less than Two 120 Second Contractions (Yulissa Marciano, RNC) Pattern: Normal: <= 5 Contractions in 10 Minutes (Yulissa Marciano, RNC) Resting Tone (Palpate): Relaxed (Yulissa Marciano, RNC) Monitor Mode: External US (Yulissa Marciano, RNC) FHR Baseline Rate : 140 (Yulissa Marciano, RNC) Variability: Moderate 6-25 bpm (Yulissa Marciano, RNC) Accelerations: 15X15 (Yulissa Marciano, RNC) Decelerations: None (Yulissa Marciano, RNC) Datetime: 11/09/2016 18:16 Stage 2 Comments: pushing tug of war (Melody Aaronmes, RN) Datetime: 11/09/2016 18:15 Monitor Mode: External; Palpation (Yulissa Marciano, RNC) Frequency (min): 2.5-4 (Yulissa Marciano, RNC) Quality: Mild/Moderate (Yulissa Marciano, RNC) Duration (sec): 60-90 (Yulissa Marciano, RNC) Duration Criteria: Less than Two 120 Second Contractions (Yulissa Marciano, RNC) Pattern: Normal: <= 5 Contractions in 10 Minutes (Yulissa Marciano, RNC) Resting Tone (Palpate): Relaxed (Yulissa Marciano, RNC) Monitor Mode: External US (Yulissa Marciano, RNC) FHR Baseline Rate : 135 (Yulissa Marciano, RNC) Variability: Moderate 6-25 bpm (Yulissa Marciano, RNC) Accelerations: 15X15 (Yulissa Marciano, RNC) Decelerations: None (Yulissa Marciano, RNC) Medication Comments: Order recieved to increase pitocin to 36mu until adaquate ctx (Melody Arthur, RN) Datetime: 11/09/2016 18:11 Communication Comments: Dr. Torrez at bedside (Melody Gibson, KAITLIN) Datetime: 11/09/2016 18:09 NBP Sys/Nyla/Mean (mmHg): 124 (QS system process) : 76 (QS system process) : 94 (QS system process) Pulse: 88 (QS system process) Pitocin (milliunit): Pitocin Increased to (milliunits) @ 22 (Melody Gibson RN) Medication Comments: Dr. Torrez at bedside, order recieved to increase Pitocin to 22 (Melody Gibson RN) LaborFlag: Antepartum (QS system process) Datetime: 11/09/2016 18:00 Monitor Mode: External; Palpation (MC Barrett) Frequency (min): 3-4 (MC Barrett) Quality: Moderate to Strong (MC Barrett) Duration (sec): 60-90 (MC Barrett) Duration Criteria: Less than Two 120 Second Contractions (MC Barrett) Pattern: Normal: <= 5 Contractions in 10 Minutes (MC Barrett) Resting Tone (Palpate): Relaxed (MC Barrett) Monitor Mode: External US (MC Barrett) FHR Baseline Rate : 140 (MC Barrett) Variability: Minimal - Undetectable to <=5 bpm (MC Barrett) Accelerations: None (MC Barrett) Decelerations: None (MC Barrett)
[2016-11-09] MEDS ORDERED: ONDANSETRON HCL INJ/PF 4 MG/2 ML SDV ONE (21:17)
[2016-11-09] MEDS ORDERED: DIBUCAINE 1% OINTMENT 28 GM TP PRN (21:37)
[2016-11-09] MEDS ORDERED: PROMETHAZINE HCL INJ 25 MG/1 ML VIAL IV PRN (21:37)
[2016-11-09] MEDS ORDERED: DIPH/PERTUSS(ACELL)/TETANUS VAC/PF 0.5 ML SYR (>=10YO) IM PRN (21:37)
[2016-11-09] MEDS ORDERED: DIPHENHYDRAMINE HCL 25 MG CAPSULE PO PRN (21:37)
[2016-11-09] MEDS ORDERED: MEASLES,MUMPS&RUBELLA VACC/PF 0.5 ML VIAL SUBCUT PRN (21:37)
[2016-11-09] MEDS ORDERED: MAGNESIUM HYDROXIDE SUSP 30 ML UDCUP PO PRN (21:37)
[2016-11-09] MEDS ORDERED: GLYCERIN/WITCH HAZEL LEAF 1 EACH MED..PAD TP PRN (21:37)
[2016-11-09] MEDS ORDERED: BENZOCAINE/MENTHOL AEROSOL SPRAY 56 ML TOP PRN (21:37)
[2016-11-09] MEDS ORDERED: OXYTOCIN/NORMAL SALINE 1,000 ML IV PRN (21:37)
[2016-11-09] MEDS ORDERED: PROMETHAZINE HCL 25 MG SUPP.RECT PR PRN (21:37)
[2016-11-09] MEDS ORDERED: ACETAMINOPHEN 650 MG SUPP.RECT PR PRN (21:37)
[2016-11-09] MEDS ORDERED: NA PHOS,M-B/NA PHOS,DI-BA (ADULT) 133 ML ENEMA PR PRN (21:37)
[2016-11-09] MEDS ORDERED: ACETAMINOPHEN WITH CODEINE #3 TABLET PO PRN ×2 (21:37)
[2016-11-09] MEDS ORDERED: PROMETHAZINE HCL 25 MG TABLET PO PRN (21:37)
[2016-11-09] MEDS ORDERED: ZOLPIDEM TARTRATE 5 MG TABLET PO PRN (21:37)
[2016-11-09] MEDS ORDERED: PSEUDOEPHEDRINE HCL 30 MG TABLET PO PRN (21:37)
[2016-11-09] MEDS ORDERED: ERTAPENEM SODIUM INJ 1 GM VIAL IV ONE (22:21)
[2016-11-09] MEDS ORDERED: ERTAPENEM SODIUM INJ 1 GM VIAL ONE (22:31)
--- NOTE | 2016-11-09 22:39 | Admission Physical ---
Datetime Report Generated by CPN: 11/09/2016 22:39 CURRENT ADMISSION Chief Complaint: Scheduled Induction of Labor Indication for Induction: Gest. HTN/PreEclampsia/Eclampsia Admit Plan: Initiate Labor Induction Protocol ALLERGIES Medication Allergies: No Medication Allergies: No Known Allergies (11/08/2016) Medication Allergies: No Known Allergies (11/04/2016) Medication Allergies: No Known Allergies (10/13/2016) Latex: No Latex Allergies Food Allergies: none Environmental Allergies: none OBSTETRICAL HISTORY EDC: 11/17/2016 00:00 : 2 Para: 0 Para: 0 Para: 0 Term: 0 : 0 SAB: 0 IAB: 0 Ectopic: 1 Livin Cesareans: 0 VBACs: 0 Multiple Births: 0 Gestational Diabetes: Yes Rh Sensitization: No Incompetent Cervix: No LAILA: No Infertility: No ART Treatment: No Uterine Anomaly: No IUGR: No Hx Previous C/S: No Macrosomia: No Hx Loss/Stillborn: No PIH: Yes Hx : No Placenta Previa/Abruption: No Depression/PP Depression: No PTL/PROM: No Post Hemorrhage: No Current Procedures: Ultrasound; NST Obstetrical History Comments: G1- 2006 ETOP G2- current - chtn vs ghtn SEE RECORDS Alcohol: No Marijuana : No Cocaine: No Other Illicit Drugs: No Cigarettes: Never Smoker. 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 Surgery: No Heart Disease: No Hosp/Surgery: No Autoimmune Disorder: No Anesthetic Complications: No Kidney Disease: No Abnormal Pap Smear: Yes Neuro/Epilepsy: No Psychiatric Disorders: No Other Medical Diseases: No Hepatitis/Liver Disease: No Significant Family History: No Varicosities/Phlebitis: No Trauma/Violence : No Thyroid Dysfunction: No Medical History Comments: abnormal PAP when 15, "scraped cervix" and follow up with clear INFECTIOUS HISTORY Gonorrhea: No Genital Herpes: No Chlamydia: No Tuberculosis: No Syphilis: No Hepatitis: No HIV/AIDS Exposure: No Rash or Viral Illness: No HPV: No PHYSICAL EXAM General: Normal HEENT: Deferred Neurologic: Normal Thyroid: Deferred Heart: Normal Lungs: Normal Breast: Deferred Back: Deferred Abdomen: Normal Genitourinary Exam: Normal Extremities: Deferred DTRs: Deferred Pelvic Type: Adequate Physical Exam Comments: cervix exam per RN Vital Signs: Reviewed VAGINAL EXAM Dilatation: 10 Effacement: 100 Station: 0 MEMBRANES Membranes: Ruptured Amniotic Fluid Color: Clear FETUS A EGA: 38.5 Monitoring: External US Variability: Moderate 6-25bpm Accelerations: 15X15 Decelerations: None FHR Category: Category I Admit Comment: cytotec placed BP 120/70s, denies headache, vision changes, abd pain PLANS FOR LABOR AND DELIVERY Labor and Delivery: None Pain Management: Natural Feeding Preference: Breast Benefit of Breast Feed Discussed: Yes Circumcision: Yes INFORMED CONSENT Assignment: Ene Ramos MD Signature: with User ID: [email or web address] : with User ID: [email or web address] : I personally evaluated and examined the patient in conjunction with the MLP and agree with the assessment, treatment plan and disposition.
[2016-11-09] MEDS: IBUPROFEN 800 MG TABLET PO SCH (23:19)
[2016-11-09] MEDS: FAMOTIDINE 20 MG TABLET PO SCH (23:20)
--- NOTE | 2016-11-09 23:34 | Delivery Summary ---
Del Sum A-C Datetime Report Generated by CPN: 11/09/2016 23:34 ADMISSION DATA Chief Complaint: Scheduled Induction of Labor Indication for Induction: Gest. HTN/PreEclampsia/Eclampsia Admission Impression: No Active Labor Admit Provider Comments: cytotec placed BP 120/70s, denies headache, vision changes, abd pain DELIVERY PERSONNEL Delivery Doctor:: Shelia Torrez MD Labor and Delivery Nurse:: Melody Gibson RNspiral binder Nurse:: Jordyn Connell RN Baby Sitter:: Dorothy Durham RN Loss Prevention Agent/ONLINE MARKETING ANALYST: Melody Boles CNA MATERNAL INFORMATION Delivery Anesthesia: Epidural Medications After Delivery: Pitocin Drip 20 Units/1000ml NSS; Other-Please Comment Meds After Delivery Comment: 1000mcg Cytotec [place]; Hemabate 250mcg IM Estimated Blood Loss (ml): 700 Maternal Complications: None Provider Comments: When pt complete and pushing at +4 station for some time, variable to 50s developed. Small episiotmy cut and head delivered easily thereafter. Head delivered OA. Nuchal cord reduced. Shoulders and body delivered easily. Cord clamped and cut. Placenta spont and intact. Male with apgars 9 and 9. PPH due to atony ensued..responded to placement of morales palmer, hemabate 1 amp and cytotec 1000mcg pr. Mom and baby doing well. LABOR SUMMARY EDC: 11/17/2016 00:00 No. Babies in Womb: 1 Attempted: No Labor Anesthesia: Epidural LABOR INFORMATION Reason for Induction: Gestational Hypertension; Other Reason for Induction- Other: GDM Onset of Labor: 11/09/2016 05:30 Complete Dilatation: 11/09/2016 16:15 Cervical Ripening Agents: Cytotec @ Oxytocin: Induction Group B Beta Strep: neg Antibiotics # of Doses: 0 Steroids Given: None Reason Steroids Not Administered: Not Applicable MEMBRANES Membranes Rupture Method: Spontaneous Rupture of Membranes: 11/09/2016 05:28 Length of Rupture (hr): 14.07 Amniotic Fluid Color: Clear Amniotic Fluid Amount: Moderate Amniotic Fluid Odor: Normal STAGES OF LABOR Stage 1 hr: 10 Stage 1 min: 45 Stage 2 hr: 3 Stage 2 min: 17 Stage 3 hr: 0 Stage 3 min: 5 Total Time in Labor hr: 14 Total Time in Labor min: 7 VAGINAL DELIVERY Episiotomy: Right Mediolateral Laceration Extension: N/A Laceration Type: None Laceration Repair: Yes Laceration Repair Note: 1st degree episiotomy repired with 2-0 chromic Sponge Count Correct: N/A Sharps Count Correct: Yes CSECTION DELIVERY Primary Indication: N/A Secondary Indication: N/A CSection Incidence: N/A Labor: N/A Elective: N/A CSection Incision: N/A BABY A INFORMATION Delivery Date/Time: 11/09/2016 19:32 Method of Delivery: Vaginal Born in Route : No : N/A Forceps: N/A Vacuum Extraction: N/A Shoulder Dystocia : No PRESENTATION/POSITION BABY A Presentation: Cephalic Cephalic Presentation: Vertex Breech Presentation: N/A PLACENTA INFORMATION BABY A Placenta Delivery Time : 11/09/2016 19:37 Placenta Method of Delivery: Spontaneous Placenta Status: Delivered SCORES BABY A Heart Rate 1 min: >100 bpm Resp Effort 1 min: Good Cry Reflex Irritability 1 min: Cough or Sneeze or Pulls Away Muscle Tone 1 min: Active Motion Color 1 min: Body [place], Extremities Blue Resuscitation Effort 1 min: Tactile Stimulation SCORE 1 MIN: 9 Heart Rate 5 min: >100 bpm Resp Effort 5 min: Good Cry Reflex Irritability 5 min: Cough or Sneeze or Pulls Away Muscle Tone 5 min: Active Motion Color 5 min: Body [place], Extremities Blue Resuscitation Effort 5 min: Tactile Stimulation SCORE 5 MIN: 9 INFANT INFORMATION BABY A Gestational Age at Delivery: 38.6 Gestational Status: Early Term- 37- 38.6 Weeks Outcome : Liveborn Infant Condition : Stable Sex: Male IDENTIFICATION BABY A Infant Verification Date/Time: 11/09/2016 19:40 ID Band Number: [id number] Mother's Name Verified: Yes Infant RN Verifying : Torri Li RN Additional Verifying Personnel: Nacho Mayen RN WEIGHT/LENGTH BABY A Infant Birthweight (gm): 3680 Infant Weight (lb): 8 Weight (oz): 2 Length (in): 20.00 Infant Length (cm): 50.80 CORD INFORMATION BABY A No. Cord Vessels: 3 Nuchal Cord : Around Neck x1, Loose Cord Blood Taken: Yes-For Storage (Mom's Blood type +) Infant Suction: None ASSESSMENT BABY A Complications: None Physical Findings- Other: rosanna right leg Infant Respirations: Appears Normal Skin to Skin: Yes Skin to Skin Time (min): 60 Maintenance Machine Repairer/ALS Called : No Care By: Diana Durham RN Transferred To: Remains with Mother BABY B INFORMATION : N/A SIGNATURES Signature: with User ID: [email or web address] : I was personally available for consultation and serving as supervising physician for the MLP. : I personally evaluated and examined the patient in conjunction with the MLP and agree with the assessment, treatment plan and disposition.
[2016-11-10] MEDS: IBUPROFEN 800 MG TABLET PO SCH ×3 (05:46→21:08)
--- NOTE | 2016-11-10 07:00 | L&D Flow Sheet ---
LD Flowsheet Datetime Report Generated by CPN: 11/10/2016 07:00 Datetime: 11/09/2016 22:34 Stage of : Recovery (Jordyn Connell, RN) Datetime: 11/09/2016 22:33 Stage of : Recovery (Jordyn Connell, RN) Temperature (F): 100.6 (Jordyn Connell, RN) Temperature (C): 38.1 (QS system process) Datetime: 11/09/2016 22:22 NBP Sys/Nyla/Mean (mmHg): 121 (QS system process) : 56 (QS system process) : 80 (QS system process) Pulse: 109 (QS system process) Datetime: 11/09/2016 22:00 Stage of : Recovery (Jordyn Connell, RN) Respirations: 18 (Jordyn Connell, RN) Pain Scale: 0 (Jordyn Connell, RN) Pain Presence: None/Denies (Jordyn Connell, RN) Pain Type: N/A (Jordyn Connell, RN) Datetime: 11/09/2016 21:28 Stage of : Recovery (Jordyn Connell, RN) Respirations: 18 (Jordyn Connell, RN) Pain Scale: 0 (Jordyn Connell, RN) Pain Presence: None/Denies (Jordyn Connell, RN) Pain Type: N/A (Jordyn Connell, RN) Datetime: 11/09/2016 21:18 Stage of : Recovery (Jordyn Connell, RN) Datetime: 11/09/2016 21:17 Stage of : Recovery (Jordyn Connell, RN) Datetime: 11/09/2016 21:15 Stage of : Recovery (Jordyn Connell, RN) Datetime: 11/09/2016 21:12 Stage of : Recovery (Jordyn Connell, RN) Datetime: 11/09/2016 21:10 Stage of : Recovery (Jordyn Connell, RN) Pain Scale: 0 (Jordyn Connell, RN) Pain Presence: None/Denies (Jordyn Connell, RN) Pain Type: N/A (Jordyn Connell, RN) Datetime: 11/09/2016 20:52 Stage of : Recovery (Jordyn Connell, RN) Pain Scale: 0 (Jordyn Connell, RN) Pain Presence: None/Denies (Jordyn Connell, RN) Pain Type: N/A (Jordyn Connell, RN) Datetime: 11/09/2016 20:35 Stage of : Recovery (Jordyn Connell, RN) Respirations: 18 (Jordyn Connell, RN) Temperature (F): 97.9 (Jordyn Connell, RN) Temperature (C): 36.6 (QS system process) Pain Scale: 0 (Jordyn Connell, RN) Pain Presence: None/Denies (Jordyn Connell, RN) Pain Type: N/A (Jordyn Connell, RN) Datetime: 11/09/2016 20:20 Stage of : Recovery (Jordyn Connell, RN) Datetime: 11/09/2016 20:15 Stage of : Recovery (Jordyn Connell, RN) Datetime: 11/09/2016 20:10 NBP Sys/Nyla/Mean (mmHg): 156 (QS system process) : 67 (QS system process) : 96 (QS system process) Pulse: 116 (QS system process) Datetime: 11/09/2016 20:05 Stage of : Recovery (Jordyn Connell, RN) Respirations: 18 (Jordyn Connell, RN) Pain Scale: 0 (Jordyn Connell, RN) Pain Presence: None/Denies (Jordyn Connell, RN) Pain Type: N/A (Jordyn Connell, RN) Datetime: 11/09/2016 19:54 NBP Sys/Nyla/Mean (mmHg): 135 (QS system process) : 66 (QS system process) : 95 (QS system process) Datetime: 11/09/2016 19:50 Respirations: 18 (Jordyn Connell, RN) Datetime: 11/09/2016 19:48 Stage of : Recovery (Jordyn Connell, RN) Datetime: 11/09/2016 19:46 Stage of : Recovery (Jordyn Connell, RN) Datetime: 11/09/2016 19:45 Stage of : Recovery (Jordyn Connell, RN) Datetime: 11/09/2016 19:42 Stage of : Recovery (Jordyn Connell, RN) Datetime: 11/09/2016 19:40 Stage of : Recovery (Jordyn Connell, RN) NBP Sys/Nyla/Mean (mmHg): 136 (QS system process) : 63 (QS system process) : 91 (QS system process) Pulse: 98 (QS system process) Datetime: 11/09/2016 19:37 Stage of : Labor (Jordyn Connell, RN) Datetime: 11/09/2016 19:32 Stage 2 Comments: Delivered by Dr Torrez (Jordyn Connell, RN) Datetime: 11/09/2016 19:30 Monitor Mode: External; Palpation (Yulissa Marciano, RNC) Frequency (min): 2.5-4 (Yulissa Marciano, RNC) Quality: Strong (Yulissa Marciano, RNC) Duration (sec): 60-90 (Yulissa Marciano, RNC) Duration Criteria: Less than Two 120 Second Contractions (Yulissa Marciano, RNC) Pattern: Normal: <= 5 Contractions in 10 Minutes (Yulissa Marciano, RNC) Resting Tone (Palpate): Relaxed (Yulissa Marciano, RNC) Monitor Mode: External US (Yulissa Marciano, RNC) FHR Baseline Rate : 145 (Yulissa Marciano, RNC) Variability: Moderate 6-25 bpm (Yulissa Marciano, RNC) Accelerations: None (Yulissa Marciano, RNC) Decelerations: None (Yulissa Marciano, RNC) Pushing Position: Pushing with Contractions (Yulissa Marciano, RNC) Pushing Progress: Descent with Pushing (Yulissa Marciano, RNC) Datetime: 11/09/2016 19:15 Monitor Mode: External; Palpation (Yulissa Marciano, RNC) Frequency (min): 4-5 (Yulissa Marciano, RNC) Quality: Strong (Yulissa Marciano, RNC) Duration (sec): 60-120 (Yulissa Marciano, RNC) Duration Criteria: Less than Two 120 Second Contractions (Yulissa Marciano, RNC) Pattern: Normal: <= 5 Contractions in 10 Minutes (Yulissa Marciano, RNC) Resting Tone (Palpate): Relaxed (Yulissa Marciano, RNC) Monitor Mode: External US (Yulissa Marciano, RNC) FHR Baseline Rate : 145 (Yulissa Marciano, RNC) Variability: Moderate 6-25 bpm (Yulissa Marciano, RNC) Accelerations: None (Yulissa Marciano, RNC) Decelerations: Early (Yulissa Marciano, RNC) Datetime: 11/09/2016 19:11 Pitocin (milliunit): Pitocin Increased to (milliunits) @ 28 (Melody Arthur, RN) Datetime: 11/09/2016 19:06 Communication Comments: Dr. Torrez at bedside (Melody Gibson RN) Datetime: 11/09/2016 19:00 Monitor Mode: External; Palpation (MC Barrett) Frequency (min): 3-5 (Yulissa Tariq, KAITLINC) Quality: Mild/Moderate (Yulissa Tariq, RNC) Duration (sec): 60-90 (Yulissa Tarqi, RNC) Duration Criteria: Less than Two 120 Second Contractions (Yulissa Tariq, RNC) Pattern: Normal: <= 5 Contractions in 10 Minutes (Yulissa Tariq, RNC) Resting Tone (Palpate): Relaxed (Yulissa Tariq, RNC) Monitor Mode: External US (Yulissa Tariq RNC) FHR Baseline Rate : 135 (Yulissa Tariq, RNC) Variability: Moderate 6-25 bpm (Yulissa Tariq, RNC) Accelerations: 15X15 (Yulissa Tariq, RNC) Decelerations: None (Yulissa Tariq RNC) Pitocin (milliunit): Pitocin Increased to (milliunits) @ 26 (Melody Gibson RN)
[2016-11-10 07:45] LABS: HEMATOCRIT 24.8 % (36.0-47.0); HGB HCT DIFFERENCE 0.1; MEAN CORPUSCULAR HEMOGLOBIN 28.7 pg (27.0-33.4); MEAN CORPUSCULAR HGB CONC 33.4 g/dL (32.0-36.0); MEAN CORPUSCULAR VOLUME 86 fl (80-97); RED BLOOD COUNT 2.89 10^6/uL (3.72-5.28); RED CELL DISTRIBUTION WIDTH 15.2 % (11.5-14.0); WHITE BLOOD COUNT 13.5 10^3/uL (4.0-10.5)
[2016-11-10 08:00] LABS: HEMOGLOBIN 8.3 g/dL (12.0-15.5)
--- NOTE | 2016-11-10 09:49 | PDOC PROGRESS REPORT ---
Subjective-OB Subjective: Post Delivery Day: 1 26 year old. Denies any needs at this time, states lochia is stable, pain is well controlled, voiding without difficulty. Physical Exam (OB) Vital Signs: Temp Pulse Resp BP Pulse Ox 97.9 F 84 18 105/59 L 99 11/10/16 05:42 11/10/16 05:42 11/10/16 05:42 11/10/16 05:42 11/10/16 05:42 Intake & Output 11/09/16 11/10/16 11/11/16 06:59 06:59 06:59 Output Total 900 Balance -900 Weight 98 kg - PIH/Pre-Eclampsia Clonus: Negative Headache: Absent Epigastric Pain: No Visual Changes: No - Lochia Lochia Amount: Scant < 10 ml Lochia Color: Rubra/Red - Abdomen Description: Soft Hernia Present: No Fundal Description: Firm, Midline Fundal Height: u/u - u/2 Objective-Diagnostic Laboratory: 11/10/16 07:34 11/09/16 07:34 11/10/16 07:34 WBC 13.5 H RBC 2.89 L Hgb 8.3 L D Hct 24.8 L MCV 86 MCH 28.7 MCHC 33.4 RDW 15.2 H Plt Count 145 L Assessment and Plan(PN) - Assessment and Plan (1) Acute blood loss anemia Is this a current diagnosis for this admission?: YesPlan: ferrous sulfate increase dietary iron (2) Delivery normal Is this a current diagnosis for this admission?: YesPlan: routine pp care (3) Gestational diabetes Qualifiers: Gestational diabetes mellitus control: diet-controlled Trimester: third trimester Qualified Code(s): O24.410 - Gestational diabetes mellitus in , diet controlled Is this a current diagnosis for this admission?: YesPlan: 6 w pp glucose test - Time Spent with Patient Time with patient: Less than 15 minutes Critical Time spent with patient: Less than 15 minutes Medications reviewed and adjusted accordingly: Yes - Disposition Anticipated Discharge: Home Within: within 24 hours
[2016-11-10] MEDS ORDERED: PRENATAL VITAMIN W-O CA NO5/FE FUMARATE/FA CAPSULE PO SCH (10:00)
[2016-11-10] MEDS ORDERED: SENNOSIDES/DOCUSATE 8.6-50 MG 1 EACH TABLET PO SCH (10:00)
[2016-11-10] MEDS: FERROUS SULFATE 325 MG TABLET PO SCH (17:45)
[2016-11-10] MEDS: DOCUSATE SODIUM 100 MG CAPSULE PO SCH (17:46)
--- NOTE | 2016-11-10 18:01 | L&D Current Admission ---
Current Admit Datetime Report Generated by CPN: 11/10/2016 18:00 ADMISSION INFORMATION Current Admit Date/Time: 11/08/2016 09:09 (11/08/2016 09:27:Dorothy Durham RN) Reason for Admission: Induction of Labor (11/08/2016 09:27:Dorothy Durham RN) Chief Complaint: Scheduled Induction of Labor (11/08/2016 09:30:Dorothy Durham RN) Medications During : Vitamin (11/08/2016 09:27:Dorothy Durham RN) EGA per Dates: 38.5 (11/08/2016 09:27:QS system process) Method of Arrival: Ambulatory (11/08/2016 09:27:Rose Santos RN) Admitted From: Home (11/08/2016 09:27:Rose Santos RN) Reason for Induction: Gestational Hypertension; Maternal Diabetes (11/08/2016 09:27:Rose Santos RN) Records Available: Yes (11/08/2016 09:27:Rose Santos RN) General Admission Information: Reviewed; Confirmed (11/08/2016 09:27:Dorothy Durham RN) General Admission Reviewed By: Diana Durham RN (11/08/2016 09:27:Dorothy Durham RN) BELONGINGS/ADVANCED DIRECTIVES Valuables/Personal Effects: Cell Phone (11/08/2016 09:27:Rose Santos RN) Other Belongings: SEE VALUABLES CONSENT (11/08/2016 09:27:Rose Santos RN) Disposition of Belongings: Kept with Patient (11/08/2016 09:27:Rose Santos RN) Advance Direct for Healthcare: No, and Wants No Information (11/08/2016 09:27:Dorothy Durham RN) Durable Power of Locker Plant Attendant: No (11/08/2016 09:27:Dorothy Durham RN) Living Will: No (11/08/2016 09:27:Dorothy Durham RN) Organ Donor: No (11/08/2016 09:27:Dorothy Durhma RN) Pt Rights Information Given: Yes (11/08/2016 09:27:Dorothy Durham RN) Pt Understands Pt Rights: Yes (11/08/2016 09:27:Dorothy Durham RN) LEARNING ASSESSMENT Knowledge Level: Understands L_D Process; Understands Care Activities; Understands Diagnosis (11/08/2016 09:27:Rose Santos RN) Barriers to Learning: None (11/08/2016 09:27:Rose Santos RN) Learning Readiness: Motivated (11/08/2016 09:27:Rose Santos RN) Learns Best By: 1 to 1 Instruction; Reading; Videos; Demonstration (11/08/2016 09:27:Rose Santos RN) Learning Needs: Labor and Delivery Process; Pain Management; Symptoms to Report; Treatment Plan; Medication; Diagnosis; Nutrition; Equipment; Care; Community Resources (11/08/2016 09:27:Rose Santos RN) DOMESTIC VIOLANCE SCREENING Dom Viol Threatened/Hurt: No (11/08/2016 09:27:Dorothy Durham RN) Hx of Abuse/Neglect past 2yrs: No (11/08/2016 09:27:Dorothy Durham RN) Feel Unsafe Going Home: No (11/08/2016 09:27:Dortohy Durham RN) Addt'l Observ Indicating Abuse: No (11/08/2016 09:27:Dorothy Durham RN) Reason Unable to Complete Screen: N/A, Screen Completed (11/08/2016 09:27:Dorothy Druham RN) Considered Personal Harm/Suicide: No (11/08/2016 09:27:Dorothy Durham RN) NUTRITIONAL/FUNCTIONAL SCREENING Problem with Appetite >5 Days: No (11/08/2016 09:27:Dorothy Durham RN) Chew/Swallow Difficulties: No (11/08/2016 09:27:Dorothy Durham RN) Inappropriate Wt Gain/Loss: No (11/08/2016 09:27:Dorothy Durham RN) Presence Skin Breakdown/Ulcer: No (11/08/2016 09:27:Dorothy Durham RN) Special Diet: No (11/08/2016 09:27:Dorothy Durham RN) Pt Requests Principal Network Architect Visit: No (11/08/2016 09:27:Dorothy Durham RN) Hx of Any of the Following?: N/A (11/08/2016 09:27:Dorothy Durham RN) New Diagnosis of: N/A (11/08/2016 09:27:Dorothy Durham RN) Requires Assist w/Ambulation: No (11/08/2016 09:27:Dorothy Durham RN) Uses Assist Device to Ambulate: No (11/08/2016 09:27:Dorothy Durham RN) Pt Requires Help w/ADL's: No (11/08/2016 09:27:Dorothy Durham RN)
--- NOTE | 2016-11-10 18:01 | L&D General Admission ---
General Admit Datetime Report Generated by CPN: 11/10/2016 18:00 INFORMATION Patient Age: 26 (10/13/2016 10:09:QS system process) EDC: 11/17/2016 00:00 (10/13/2016 10:32:Melody Gibson RN) : 2 (10/13/2016 10:32:Melody Gibson RN) Para: 0 (10/26/2016 11:34:Melody Gibson RN) Term: 0 (10/13/2016 10:32:Melody Gibson RN) : 0 (10/13/2016 10:32:Melody Gibson RN) Spontaneous Abortions: 0 (10/13/2016 10:32:Melody Gibson RN) Induced Abortions: 0 (10/13/2016 10:32:Melody Gibson RN) Livin (10/13/2016 10:32:Melody Gibson RN) Cesareans: 0 (10/13/2016 10:32:Melody Gibson RN) VBACs: 0 (10/13/2016 10:32:Melody Gibson RN) Ectopic: 1 (10/13/2016 10:32:Melody Gibson RN) Multiple Births: 0 (10/13/2016 10:32:Melody Gibson RN) Baby, Number in Womb: 1 (10/26/2016 11:34:Melody Gibson RN) CARE Primary Golf Range Attendant: [facility] (10/13/2016 10:32:Melody Gibson RN) Adequate Care: Yes (10/13/2016 10:32:Melody Gibson RN) Height (in): 67 (11/10/2016 08:07:QS system process) ALLERGIES Medication Allergy: No (10/13/2016 10:32:Melody Gibson RN) Medication Allergies: No Known Allergies (11/08/2016) (11/08/2016 09:45:QS system process) Latex Allergy: No Latex Allergies (10/13/2016 10:32:Melody Gibson RN) Food Allergies: none (10/13/2016 10:32:Jordyn Connell RN) Environmental Allergies: none (10/13/2016 10:32:Jordyn Connell RN) COMMUNICATION Primary Language: Citizen Of [place] (10/13/2016 10:32:Melody Gibson RN) Medical Tx Preferred Language: Citizen Of [place] (10/13/2016 10:32:Melody Gibson RN) Communication Barrier(s): None (10/13/2016 10:32:Rose Santos RN) DEMOGRAPHICS Address: [address] [place] [id number] (10/13/2016 10:09:QS system process) Zipcode: [address] (10/13/2016 10:09:QS system process) Home (10/13/2016 10:09:QS system process) SSN: [id number] (10/13/2016 10:09:QS system process) Next of Kin Name: CAMERON TIJERINA (10/13/2016 10:09:QS system process) Next of Kin (10/13/2016 10:09:QS system process) Next of Kin Relationship: SPO (10/13/2016 10:09:QS system process) Date of : 1990 (10/13/2016 10:09:QS system process) Marital Status: (10/13/2016 10:09:QS system process) Sex: Female (10/13/2016 10:09:QS system process) Race: (10/13/2016 10:09:QS system process) Ethnicity: or (10/13/2016 10:09:QS system process) Episcopalian: Synagogue (10/13/2016 10:09:QS system process) DRUG AND ALCOHOL USE Alcohol: No (10/13/2016 10:32:Melody Gibson RN) Cigarettes: Never Smoker. [id number] (10/13/2016 10:32:Melody Gibson RN) Marijuana: No (10/13/2016 10:32:Melody Gibson RN) Cocaine: No (10/13/2016 10:32:Melody Gibson RN) Other Illicit Drugs: No (10/13/2016 10:32:Melody Gibson RN) VACCINE HISTORY Influenza Vaccine: No (10/13/2016 10:32:Melody Gibson RN) Pneumococcal Vaccine: No (10/13/2016 10:32:Jordyn Connell RN) Tetanus Vaccine: Yes (10/13/2016 10:32:Jordyn Connell RN) Tdap Vaccine: Yes (10/13/2016 10:32:Jordyn Connell RN) Hepatitis B Vaccine: Yes (10/13/2016 10:32:Jordyn Connell RN) Auto Wash Buffer: [facility] (10/13/2016 10:32:Dorothy Durham RN) Feeding Preference: Breast (10/13/2016 10:32:Peggy Berrios RN) Benefit of Breast Feed Discussed: Yes (10/13/2016 10:32:Peggy Berrios RN) Circumcision: Yes (10/13/2016 10:32:Dorothy Durham RN) Classes Attended: No (10/13/2016 10:32:Doorthy Durham RN) Tubal Ligation: No (10/13/2016 10:32:Dorothy Durham RN) Tubal Authorization Signed: N/A (10/13/2016 10:32:Dorothy Durham RN) Consent: N/A (10/13/2016 10:32:Dorothy Durham RN) Consent Signed: N/A (10/13/2016 10:32:Dorothy Durham RN) Pain Management Plans: Natural (10/13/2016 10:32:Dorothy Durham RN) Plans for Labor and Delivery: None (10/13/2016 10:32:Jordyn Connell RN) Support Person: Cameron Tijerina (10/13/2016 10:32:Dorothy Durham RN) Support Person Relationship: (10/13/2016 10:32:Dorothy Durham RN) Cultural/Spritual Practice: No (10/13/2016 10:32:Dorothy Durham RN) Spir/Cult Dietary Needs: No (10/13/2016 10:32:Dorothy Durham RN) LIVING SITUATION/DISCHARGE PLAN Living Arrangements: House (10/13/2016 10:32:Dorothy Durham RN) Adequate Access to:: Electric; Heat; Refrigeration; Plumbing/Running water; Phone; Transportation (10/13/2016 10:32:Dorothy Durham RN) WIC Program: No (10/13/2016 10:32:Dorothy Durham RN) Discharge Teacher Assistant Person: Cameron Tijerina (10/13/2016 10:32:Dorothy Durham RN) Person to Help after Discharge: Cameron Tijerina (10/13/2016 10:32:Dorothy Durham RN) Currently Using Commun Resources: No (10/13/2016 10:32:Dorothy Durham RN) Car Seat for Discharge: Yes (10/13/2016 10:32:Dorothy Durham RN) Adoption Requested: No (10/13/2016 10:32:Dorothy Durham RN) Pt Contact w/ Post : N/A (10/13/2016 10:32:Dorothy Durham RN) LABS Blood Type: A Positive (10/13/2016 10:32:Melody Gibson RN) Antibody Screen: neg (10/13/2016 10:32:Melody Gibson RN) Hemoglobin: 8.3 L (11/10/2016 07:34:QS system process) Hematocrit: 24.8 L (11/10/2016 07:34:QS system process) MCV: 86 (11/10/2016 07:34:QS system process) Group Beta Strep: neg (10/13/2016 10:32:Dorothy Durham RN) Gonorrhea: Negative (10/13/2016 10:32:Melody Gibson RN) Chlamydia: Negative (10/13/2016 10:32:Melody Gibson RN) RPR/VDRL: Nonreactive (10/13/2016 10:32:Melody Gibson RN) HIV Exposure Test: Negative (10/13/2016 10:32:Melody Gibson RN) Hepatitis B: Negative (10/13/2016 10:32:Melody Gibson RN) Rubella: Immune (10/13/2016 10:32:Melody Gibson RN) OB/PREVIOUS HISTORY Current Procedures: Ultrasound; NST (10/13/2016 10:32:Dorothy Durham RN) History of Previous : No (10/13/2016 10:32:Dorothy Durham RN) History of Gestational Diabetes: Yes (10/13/2016 10:32:Dorothy Durham RN) History of PIH: Yes (10/13/2016 10:32:Dorothy Durham RN) History of Incompetent Cervix: No (10/13/2016 10:32:Dorothy Durham RN) History of Placenta Previa/Abrup: No (10/13/2016 10:32:Dorothy Durham RN) History of Macrosomia: No (10/13/2016 10:32:Dorothy Durham RN) History of IUGR: No (10/13/2016 10:32:Dorothy Durham RN) History of Hemorrhage: No (10/13/2016 10:32:Dorothy Durham RN) History of Loss/Stillborn: No (10/13/2016 10:32:Dorothy Durham RN) History of : No (10/13/2016 10:32:Dorothy Durham RN) History of D (Rh) Sensitization: No (10/13/2016 10:32:Dorothy Durham RN) History Recurrent Loss/Stillborn: No (10/13/2016 10:32:Dorothy Durham RN) History Depression/PP Depression: No (10/13/2016 10:32:Dorothy Durham RN) History of Uterine Anomaly/LAILA: No (10/13/2016 10:32:Dorothy Durham RN) History of Infertility: No (10/13/2016 10:32:Dorothy Durham RN) History of ART Treatment: No (10/13/2016 10:32:Dorothy Durham RN) History of LAILA: No (10/13/2016 10:32:Dorothy Durham RN) Comments Obstetrical History: G1- 2006 ETOP G2- current - chtn vs ghtn (10/13/2016 10:32:Dorothy Durham RN) MEDICAL HISTORY Med Hx Diabetes: No (10/13/2016 10:32:Dorothy Durham RN) Diabetes Type: Gestational Diabetes (10/13/2016 10:32:Dorothy Durham RN) Med Hx Hypertension: Yes (10/13/2016 10:32:Dorothy Durham RN) Med Hx Heart Disease: No (10/13/2016 10:32:Dorothy Durham RN) Med Hx Autoimmune Disorder: No (10/13/2016 10:32:Dorothy Durham RN) Med Hx Kidney Disease/UTI: No (10/13/2016 10:32:Dorothy Durham RN) Med Hx Neurologic/Epilepsy: No (10/13/2016 10:32:Dorothy Durham RN) Med Hx Psychiatric Disorders: No (10/13/2016 10:32:Dorothy Durham RN) Med Hx Hepatitis/Liver Disease: No (10/13/2016 10:32:Dorothy Durham RN) Med Hx Varicosities/Phlebitis: No (10/13/2016 10:32:Dorothy Durham RN) Med Hx Thyroid Dysfunction: No (10/13/2016 10:32:Dorothy Durham RN) Med Hx Trauma/Violence: No (10/13/2016 10:32:Dorothy Durham RN) Med Hx Blood Transfusion: No (10/13/2016 10:32:Dorothy Durham RN) Med Hx Pulmonary (Asthma,TB): No (10/13/2016 10:32:Dorothy Durham RN) Med Hx Breast: No (10/13/2016 10:32:Dorothy Durham RN) Med Hx AFTER SCHOOL TUTOR Surgery: No (10/13/2016 10:32:Dorothy Durham RN) Med Hx Hospitalization/Surgery: No (10/13/2016 10:32:Dorothy Durham RN) Med Hx Anesthetic Complications: No (10/13/2016 10:32:Dorothy Durham RN) Med Hx Abnormal Pap Smear: Yes (10/13/2016 10:32:Dorothy Durham RN) Other Medical Diseases: No (10/13/2016 10:32:Dorothy Durham RN) Med Hx Significant Family Hx: No (10/13/2016 10:32:Dorothy Durham RN) Details of Med/Surg Hx: abnormal PAP when 15, "scraped cervix" and follow up with clear (10/13/2016 10:32:Dorothy Durham RN) INFECTIOUS HISTORY Inf Hx Gonorrhea: No (10/13/2016 10:32:Dorothy Durham RN) Inf Hx Chlamydia: No (10/13/2016 10:32:Dorothy Durham RN) Inf Hx Syphilis: No (10/13/2016 10:32:Dorothy Durham RN) Inf Hx HIV/AIDS: No (10/13/2016 10:32:Dorothy Durham RN) Inf Hx Human Papilloma Virus: No (10/13/2016 10:32:Dorothy Durham RN) Inf Hx Pt/Partner Genital Herpes: No (10/13/2016 10:32:Dorothy Durham RN) Inf Hx Tuberculosis/Exposure: No (10/13/2016 10:32:Dorothy Durham RN) Inf Hx Hepatitis B,C: No (10/13/2016 10:32:Dorothy Durham RN) Inf Hx Rash or Viral Illness: No (10/13/2016 10:32:Dorothy Durham RN) GENETIC HISTORY Gen Hx Age >=35 at CLARE: No (10/13/2016 10:32:Dorothy Durham RN) Gen Hx Thalassemia: No (10/13/2016 10:32:Dorothy Durham RN) Gen Hx Congenital Heart Defect: No (10/13/2016 10:32:Dorothy Durham RN) Gen Hx Neural Tube Defect: No (10/13/2016 10:32:Dorothy Durham RN) Gen Hx Down's Syndrome: No (10/13/2016 10:32:Dorothy Durham RN) Gen Hx Naseem-Sachs: No (10/13/2016 10:32:Dorothy Durham RN) Gen Hx Alexia: No (10/13/2016 10:32:Dorothy Durham RN) Gen Hx Familial Dysautonomia: No (10/13/2016 10:32:Dorothy Durham RN) Gen Hx Sickle Cell Disease/Trait: No (10/13/2016 10:32:Dorothy Durham RN) Gen Hx Hemophilia/Blood Disorder: No (10/13/2016 10:32:Dorothy Durham RN) Gen Hx Muscular Dystrophy: No (10/13/2016 10:32:Dorothy Durham RN) Gen Hx Cystic Fibrosis: No (10/13/2016 10:32:Dorothy Durham RN) Gen Hx Huntingtons Chorea: No (10/13/2016 10:32:Dorothy Durham RN) Gen Hx Mental Retardation/Autism: No (10/13/2016 10:32:Dorothy Durham RN) Gen Hx Tested for Fragile X: No (10/13/2016 10:32:Dorothy Durham RN) Gen Hx Other Inher/Chromosomal: No (10/13/2016 10:32:Dorothy Durham RN) Gen Hx Maternal Metabolic DO: No (10/13/2016 10:32:Dorothy Durham RN) Gen Hx Pt Father or FOB Defect: No (10/13/2016 10:32:Dorothy Durham RN) Gen Hx Other Genetic History: No (10/13/2016 10:32:Dorothy Durham RN) Gen Hx Drugs/Meds since LMP: No (10/13/2016 10:32:Dorothy Durham RN)
--- NOTE | 2016-11-10 18:15 | L&D Care Plan ---
LD CARE PLANS Datetime Report Generated by CPN: 11/10/2016 18:15 Datetime: 11/08/2016 09:24 State: Actual (Rose Santos RN) Related To: Labor and Delivery Process; Complication(s) of ; Treatment and Procedures; Post (Rose Santos RN) Goal(s): Patients Pain will be Assessed and Managed; Patient will Verbalize Adequate Relief of Pain or the Ability to [place] with Current Pain (Rose Santos RN) Interventions: Assess Pain Severity on Scale of 0 (None) to 5 (Severe); Assess Type, Location and Intensity of Pain Each Time Client Reports Discomfort and Notify Provider if Unusal Pain Develops; Encourage Proper Breathing and Relaxation Techniques; Offer Alternatives Such as Repositioning, Calm Environment, Massages, Diversional Activities, Ice Pack, Splinting, and Ambulation; Administer Analgesics as Ordered; Assist with Epidural Placement as Appropriate; Evaluate Therapeutic Effectiveness of Medication and Treatments (Rose Santos RN) Outcome: Patient will Report Absence or Relief of Pain Consistent with Established Pain Goal (Rose Santos RN) Status: Ongoing (Rose Santos RN) Outcome: Patient will have a Decrease in Signs and Symptoms of Discomfort (Rose Santos RN) Status: Ongoing (Rose Santos RN) Outcome: Pain will be Controlled During Procedures (Rose Santos RN) Status: Ongoing (Rose Santos RN) State: Risk For (Rose Santos RN) Related To: Labor and Delivery Process; Perceived or Actual Threat to ; Fear of Unknown; Situational Crisis; Significant Life Event (Rose Santos RN) Goal(s): Patient will have Decreased Anxiety and be able to Function at Acceptable Levels (Rose Santos RN) Interventions: Assess Verbal and Nonverbal Behavioral Indicators of Anxiety; Assist Patient to Identify and Verbalize Symptoms of Anxiety; Identify and Demonstrate Techniques to Control Anxiety; Assist Patient with Coping Mechanisms to Manage Anxiety; Provide Theraputic Touch for the Patient; Explain to Patient, Using a Calm Reassuring Approach and Nonmedical Terms, All Activities, Procedures, and Concerns; Instruct Patient and Family about Post Discharge Care, Limitations, Symptoms to Report and Resources Available (Rose Santos RN) Outcome: Patient will Identify, Verbalize and Demonstrate Techniques to Control Anxiety (Rose Santos RN) Status: Ongoing (Rose Santos RN) Outcome: Patient's Posture, Facial Expressions, Gestures and Activity Level will Reflect Decreased Anxiety (Rose Santos RN) Status: Ongoing (Rose Santos RN) Outcome: Patient will Verbalize a Sense of Control and/or Acceptance of the Situation (Rose Santos RN) Status: Ongoing (Rose Santos RN) Outcome: Patient will Identify and Utilize Support Person (Rose Santos RN) Status: Ongoing (Rose Santos RN) State: Risk For (Rose Santos RN) Related To: Labor and Delivery Process; Treatment and Procedures; Impending Alterations in Family Dynamics; Feeding and Care; Community Resources and Available Support Mechanisms (Rose Santos RN) Goal(s): Patient will Accurately Verbalize Understanding of Plan of Care and Treatment; Patient and Family will Accurately Verbalize Understanding of the Disease Process (Rose Santos RN) Interventions: Assess Motivation and Willingness of Patient/Family to Learn; Assess Preferred Learning Mode: One to One Instruction, Reading, Videos, Group Discussion or Demonstration; Assess Barriers to Learning: Pain, Emotional State, Language Barrier, Cognitive Impairment, Visual or Hearing Deficits; Assess Patient and Family Knowledge of Disease Process, Medications and Treatment; Discuss Therapy and/or Treatment Options, Describe Rationale Behind Management, Therapy and Treatment Recommendations; Instruct Patient and Family on Signs and Symptoms to Report; Instruct Patient and Family on Medication Effects and Side Effects; Provide Appropriate and Timely Education Using Multiple Techniques; Provide Patient and Family with Support Group Information and Resources; Give Clear and Thorough Explanations and Demonstrations (Rose Santos RN) Outcome: Patient and Family will Verbalize Understanding of Condition, Treatment and Signs and Symptoms to Report (Rose Santos RN) Status: Ongoing (Rose Santos RN) Outcome: Patient will Identify Perceived Learning Needs and Express Motivation to Learn (Rose Santos RN) Status: Ongoing (Rose Santos RN) Outcome: Patient will Verbalize Understanding of Desired Content, and/or Performs Desired Skill Prior to Discharge (Rose Santos RN) Status: Ongoing (Rose Santos RN) State: Risk For (Rose Santos RN) Related To: Prolonged Labor or Induction; Premature/Prolonged Rupture of Membranes; Invasive Procedures (Rose Santos, KAITLIN) Goal(s): The Patient will be Free of Infection, Vital Signs Stable and Lab Work within Normal Parameters (Rose Santos RN) Interventions: Instruct and Reinforce Proper Handwashing, Hygiene, and Care Techniques to Patient and Family; Monitor Vital Signs; Monitor Patient for the Following Signs of Infection: Fever, Abdominal Tenderness, Unusual Discharge; Monitor Aminiotic Fluid, Urine and Lochia for Color and Odor; Observe Wounds, Incisions and Invasive Line Sites for Redness, Drainage and Edema; Assess IV Sites per Hospital Policy; Monitor Lab and Test Results and Notify Provider of Abnormal Findings; Assess Nutritional Status and Promote Good Nutrition (Rose Santos RN) Outcome: Patient will Remain Free of Infection (Rose Santos RN) Status: Ongoing (Rose Santos RN) Outcome: Infection will be Recognized Early to Allow for Prompt Treatment (Rose Santos RN) Status: Ongoing (Rose Santos RN) Outcome: Patient will have Vital Signs Within Expected Range (Rose Santos RN) Status: Ongoing (Rose Santos RN) State: Risk For (Rose Santos RN) Related To: Prolonged Labor or Induction; Hemorrhage; Anesthesia (Rose Santos RN) Goal(s): Patient will Achieve and Maintain a Balanced Fluid Volume Status; Hemodynamically Stable (Rose Santos RN) Interventions: Monitor Vital Signs; Auscultate Breath Sounds; Monitor Patient for Skin Turgor, Mucous Membranes, Dry Skin, Weakness, Headaches and Confusion; Provide Oral Fluids as Ordered; Initiate and Maintain Intravenous Fluids as Ordered; Monitor Intake and Output as Indicated Per Patient Status; Accurately Measure Blood Loss; Monitor Lab and Test Results as Obtained and Notify Provider of Abnormal Findings; Monitor Patient's Weight (Rose Santos RN) Outcome: Patient will have Clear Lung Sounds (Rose Santos RN) Status: Ongoing (Roes Santos RN) Outcome: Patient will have Vital Signs within Expected Range (Rose Santos RN) Status: Ongoing (Rose Santos RN) Outcome: Urine Output will be within Expected Range (Rose Santos RN) Status: Ongoing (Rose Santos RN) Outcome: Patient will have Minimal Generalized or Upper Extremity Edema (Rose Santos RN) Status: Ongoing (Rose Santos RN) State: Risk For (Rose Santos RN) Related To: Labor and Delivery Process; Anesthesia; Risk to Status; Uteroplacental Perfusion; Decreased Mobility; Hemorrhage, Placenta Previa and or Placental Abruption (Rose Santos RN) Goal(s): Patient will Remain Free from Injury (Rose Santos RN) Interventions: Monitoring as per Hospital Protocol; Assess Neurological Status; Perform Risk Assessment of Patients with Induction and ; Perform Fall Risk Assessment and Prevention per Hospital Protocol; Perform DVT Risk Assessment and Prophylaxis per Hospital Protocol; Ensure that Oxygen, Suction, and Resuscitation Medications and Equipment are Readily Available; Confirm Patient ID Prior to Procedure(s) and Medication Administration per Hospital Policy (Rose Santos RN) Outcome: Successful Fall Risk Prevention (Rose Santos RN) Status: Ongoing (Rose Santos RN) Outcome: Patient will Deliver without Adverse [place] (Rose Santos RN) Status: Ongoing (Rose Santos RN) Outcome: Patient's Neurological Status will Remain Stable (Rose Santos RN) Status: Ongoing (Rose Santos RN) State: Risk For (Rose Santos RN) Related To: Vaginal Delivery; Invasive Procedures (Rose Santos RN) Goal(s): Patient will Maintain Optimal Skin Integrity, Free of Breakdown, Injury or Infection (Rose Santos, KAITLIN) Interventions: Complete Screening for Pressure Ulcer Risk and Initiate Protocol per Hospital Policy; Monitor Site of Skin Impairment for Color Changes, Redness, Swelling, Warmth, Pain or Other Signs of Infection; Encourage and Assist with Position Changes; Monitor Patient's Mobility Status; Provide Adequate Nutrition and Fluids; Teach Patient Appropriate Hygienic Care; Teach Patient/Family Skin Care Management (Rose Santos, KAITLIN) Outcome: Patient will not have Evidence of Injury Such as Skin Breakdown, Scrapes, Cuts, or Bruising (Rose Santos, KAITLIN) Status: Ongoing (Rose Santos RN) Outcome: Patient will Report Any Altered Sensation or Pain at Site of Skin Impairment (Rose Santos, KAITLIN) Status: Ongoing (Rose Santos, KAITLIN) Outcome: Patients Incisions and Wounds will be without Signs or Symptoms of Infection (Rose Santos, KAITLIN) Status: Ongoing (Rose Santos, KAITLIN) Outcome: Patient will Demonstrate Understanding of Plan to Heal Skin and Prevent Reinjury and Verbalize Risk Factors (Rose Santos, KAITLIN) Status: Ongoing (Rose Santos RN) State: Risk For (Rose Santos RN) Related To: Apprehension Related to [place] Care (Rose Sanots RN) Goal(s): Parents will Demonstrate Progressive Parenting Behaviors (Rose Santos RN) Interventions: Assess for Adequacy of Support Systems; Observe and Encourage Patient/Family Infant Attachment and Bonding Activities and Provide Feedback; Assess Patient/Family Understanding of 's Condition and Provide Accurate Information About Condition, Treatment and Prognosis; Assess for Patient/Family Behaviors that May Indicate Lack of Attachment; Provide a Safe Non-judgmental Environment for Patient/Family to Discuss Concerns; Promote Patient/Family Cohesiveness by Encouraging Discussion and Problem Solving; Shredding Machine Tender Referral as Indicated (Rose Santos RN) Outcome: Patient/Family will Discuss Their Fears and the Possibility of Difficulties with Parenting (Rose Santos RN) Status: Ongoing (Rose Santos RN) Outcome: Patient/Family will Exhibit Appropriate Bonding Behaviors with Infant (Rose Santos RN) Status: Ongoing (Rose Santos RN) Outcome: Patient/Family will Verbalize Positive Feelings and Demonstrate Affection and Caring Toward Infant (Rose Santos RN) Status: Ongoing (Rose Santos RN) State: Risk For (Rose Santos RN) Related To: ; (Rose Santos RN) Goal(s): Patient will have an Intake of Nutrients Sufficient to Meet Metabolic Needs (Rose Santos RN) Interventions: Nutritional Screening and Assessment per Hospital Policy; Consult Outpatient Interviewing Clerk for Further Assessment and Recommendations Regarding Food Preferences and Nutritional Support; Allow Patient to Plan and Order Diet when Possible; Monitor Laboratory Values That Indicate Nutritional Well-being; Consult Statistical Financial Analyst for Nutritional Support Regarding Requirements; Document Actual Weight Initially and Weekly (Do Not Estimate); Encourage Patient Participation in Maintaining a Food Log as Indicated; Educate Patient on the Importance of Maintaining an Adequate Caloric Intake (Rose Santos RN) Outcome: Patient will Receive Adequate Calories and Fluid Volume to Meet Metabolic Needs (Rose Santos RN) Status: Ongoing (Rose Santos RN) Outcome: Patient will Select Foods or Meals that Support Adequate Nutrition (Rose Santos RN) Status: Ongoing (Rose Santos RN)
[2016-11-10] MEDS: FAMOTIDINE 20 MG TABLET PO SCH (21:15)
[2016-11-11] MEDS: IBUPROFEN 800 MG TABLET PO SCH ×2 (06:00→14:56)
--- NOTE | 2016-11-11 06:01 | L&D Current Admission ---
Current Admit Datetime Report Generated by CPN: 11/11/2016 06:00 ADMISSION INFORMATION Current Admit Date/Time: 11/08/2016 09:09 (11/08/2016 09:27:Dorothy Durham RN) Reason for Admission: Induction of Labor (11/08/2016 09:27:Dorothy Durham RN) Chief Complaint: Scheduled Induction of Labor (11/08/2016 09:30:Dorothy Durham RN) Medications During : Vitamin (11/08/2016 09:27:Dorothy Durham RN) EGA per Dates: 38.5 (11/08/2016 09:27:QS system process) Method of Arrival: Ambulatory (11/08/2016 09:27:Rose Santos RN) Admitted From: Home (11/08/2016 09:27:Rose Santos RN) Reason for Induction: Gestational Hypertension; Maternal Diabetes (11/08/2016 09:27:Rose Santos RN) Records Available: Yes (11/08/2016 09:27:Rose Santos RN) General Admission Information: Reviewed; Confirmed (11/08/2016 09:27:Dorothy Durham RN) General Admission Reviewed By: Diana Durham RN (11/08/2016 09:27:Dorothy Durham RN) BELONGINGS/ADVANCED DIRECTIVES Valuables/Personal Effects: Cell Phone (11/08/2016 09:27:Rose Santos RN) Other Belongings: SEE VALUABLES CONSENT (11/08/2016 09:27:Rose Santos RN) Disposition of Belongings: Kept with Patient (11/08/2016 09:27:Rose Santos RN) Advance Direct for Healthcare: No, and Wants No Information (11/08/2016 09:27:Dorothy Durham RN) Durable Power of Front Desk Auxiliary: No (11/08/2016 09:27:Dorothy Durham RN) Living Will: No (11/08/2016 09:27:Dorothy Durham RN) Organ Donor: No (11/08/2016 09:27:Dorothy Durham RN) Pt Rights Information Given: Yes (11/08/2016 09:27:Dorothy Durham RN) Pt Understands Pt Rights: Yes (11/08/2016 09:27:Dorothy Durham RN) LEARNING ASSESSMENT Knowledge Level: Understands L_D Process; Understands Care Activities; Understands Diagnosis (11/08/2016 09:27:Rose Santos RN) Barriers to Learning: None (11/08/2016 09:27:Rose Santos RN) Learning Readiness: Motivated (11/08/2016 09:27:Rose Santos RN) Learns Best By: 1 to 1 Instruction; Reading; Videos; Demonstration (11/08/2016 09:27:Rose Santos RN) Learning Needs: Labor and Delivery Process; Pain Management; Symptoms to Report; Treatment Plan; Medication; Diagnosis; Nutrition; Equipment; Care; Community Resources (11/08/2016 09:27:Rose Santos RN) DOMESTIC VIOLANCE SCREENING Dom Viol Threatened/Hurt: No (11/08/2016 09:27:Dorothy Durham RN) Hx of Abuse/Neglect past 2yrs: No (11/08/2016 09:27:Dorothy Durham RN) Feel Unsafe Going Home: No (11/08/2016 09:27:Dorothy Durham RN) Addt'l Observ Indicating Abuse: No (11/08/2016 09:27:Dorothy Durham RN) Reason Unable to Complete Screen: N/A, Screen Completed (11/08/2016 09:27:Dorothy Durham RN) Considered Personal Harm/Suicide: No (11/08/2016 09:27:Dorothy Durham RN) NUTRITIONAL/FUNCTIONAL SCREENING Problem with Appetite >5 Days: No (11/08/2016 09:27:Dorothy Durham RN) Chew/Swallow Difficulties: No (11/08/2016 09:27:Dorothy Durham RN) Inappropriate Wt Gain/Loss: No (11/08/2016 09:27:Dorothy Durham RN) Presence Skin Breakdown/Ulcer: No (11/08/2016 09:27:Dorothy Durham RN) Special Diet: No (11/08/2016 09:27:Dorothy Durham RN) Pt Requests Desk Attendant Visit: No (11/08/2016 09:27:Dorothy Durham RN) Hx of Any of the Following?: N/A (11/08/2016 09:27:Dorothy Durham RN) New Diagnosis of: N/A (11/08/2016 09:27:Dorothy Durham RN) Requires Assist w/Ambulation: No (11/08/2016 09:27:Dorothy Durham RN) Uses Assist Device to Ambulate: No (11/08/2016 09:27:Dorothy Durham RN) Pt Requires Help w/ADL's: No (11/08/2016 09:27:Dorothy Durham RN)
--- NOTE | 2016-11-11 06:01 | L&D General Admission ---
General Admit Datetime Report Generated by CPN: 11/11/2016 06:00 INFORMATION Patient Age: 26 (10/13/2016 10:09:QS system process) EDC: 11/17/2016 00:00 (10/13/2016 10:32:Melody Gibson RN) : 2 (10/13/2016 10:32:Melody Gibson RN) Para: 0 (10/26/2016 11:34:Melody Gibson RN) Term: 0 (10/13/2016 10:32:Melody Gibson RN) : 0 (10/13/2016 10:32:Melody Gibson RN) Spontaneous Abortions: 0 (10/13/2016 10:32:Melody Gibson RN) Induced Abortions: 0 (10/13/2016 10:32:Melody Gibson RN) Livin (10/13/2016 10:32:Melody Gibson RN) Cesareans: 0 (10/13/2016 10:32:Melody Gibson RN) VBACs: 0 (10/13/2016 10:32:Melody Gibson RN) Ectopic: 1 (10/13/2016 10:32:Melody Gibson RN) Multiple Births: 0 (10/13/2016 10:32:Melody Gibson RN) Baby, Number in Womb: 1 (10/26/2016 11:34:Melody Gibson RN) CARE Primary [facility] Fin[facility]: [facility] (10/13/2016 10:32:Melody Gibson RN) Adequate Care: Yes (10/13/2016 10:32:Melody Gibson RN) Height (in): 67 (11/10/2016 08:07:QS system process) ALLERGIES Medication Allergy: No (10/13/2016 10:32:Melody Gibson RN) Medication Allergies: No Known Allergies (11/08/2016) (11/08/2016 09:45:QS system process) Latex Allergy: No Latex Allergies (10/13/2016 10:32:Melody Gibson RN) Food Allergies: none (10/13/2016 10:32:Jordyn Connell RN) Environmental Allergies: none (10/13/2016 10:32:Jordyn Connell RN) COMMUNICATION Primary Language: Nicaraguan (10/13/2016 10:32:Melody Gibson RN) Medical Tx Preferred Language: Nicaraguan (10/13/2016 10:32:Melody Gibson RN) Communication Barrier(s): None (10/13/2016 10:32:Rose Santos RN) DEMOGRAPHICS Address: [address] [place] [id number] (10/13/2016 10:09:QS system process) Zipcode: [address] (10/13/2016 10:09:QS system process) Home (10/13/2016 10:09:QS system process) SSN: [id number] (10/13/2016 10:09:QS system process) Next of Kin Name: CAMERON TIJERINA (10/13/2016 10:09:QS system process) Next of Kin (10/13/2016 10:09:QS system process) Next of Kin Relationship: SPO (10/13/2016 10:09:QS system process) Date of : 1990 (10/13/2016 10:09:QS system process) Marital Status: (10/13/2016 10:09:QS system process) Sex: Female (10/13/2016 10:09:QS system process) Race: (10/13/2016 10:09:QS system process) Ethnicity: or (10/13/2016 10:09:QS system process) Hinduism: Scientology (10/13/2016 10:09:QS system process) DRUG AND ALCOHOL USE Alcohol: No (10/13/2016 10:32:Melody Gibson RN) Cigarettes: Never Smoker. [id number] (10/13/2016 10:32:Melody Gibson RN) Marijuana: No (10/13/2016 10:32:Melody Gibson RN) Cocaine: No (10/13/2016 10:32:Melody Gibson RN) Other Illicit Drugs: No (10/13/2016 10:32:Melody Gibson RN) VACCINE HISTORY Influenza Vaccine: No (10/13/2016 10:32:Melody Gibson RN) Pneumococcal Vaccine: No (10/13/2016 10:32:Jordyn Connell RN) Tetanus Vaccine: Yes (10/13/2016 10:32:Jordyn Connell RN) Tdap Vaccine: Yes (10/13/2016 10:32:Jordyn Connell RN) Hepatitis B Vaccine: Yes (10/13/2016 10:32:Jordyn Connell RN) Hot Metal Charger: [facility] (10/13/2016 10:32:Dorothy Durham RN) Feeding Preference: Breast (10/13/2016 10:32:Peggy Berrios RN) Benefit of Breast Feed Discussed: Yes (10/13/2016 10:32:Peggy Berrios RN) Circumcision: Yes (10/13/2016 10:32:Dorothy Durham RN) Classes Attended: No (10/13/2016 10:32:Dorothy Durham RN) Tubal Ligation: No (10/13/2016 10:32:Dorothy Durham RN) Tubal Authorization Signed: N/A (10/13/2016 10:32:Dorothy Durham RN) Consent: N/A (10/13/2016 10:32:Dorothy Durham RN) Consent Signed: N/A (10/13/2016 10:32:Dorothy Durham RN) Pain Management Plans: Natural (10/13/2016 10:32:Dorothy Durham RN) Plans for Labor and Delivery: None (10/13/2016 10:32:Jordyn Connell RN) Support Person: Cameron Tijerina (10/13/2016 10:32:Dorothy Durham RN) Support Person Relationship: (10/13/2016 10:32:Dorothy Durham RN) Cultural/Spritual Practice: No (10/13/2016 10:32:Dorothy Durham RN) Spir/Cult Dietary Needs: No (10/13/2016 10:32:Dorothy Durham RN) LIVING SITUATION/DISCHARGE PLAN Living Arrangements: House (10/13/2016 10:32:Dorothy Durham RN) Adequate Access to:: Electric; Heat; Refrigeration; Plumbing/Running water; Phone; Transportation (10/13/2016 10:32:Dorothy Durham RN) WIC Program: No (10/13/2016 10:32:Dorothy Durham RN) Discharge Historic Clothing And Costume Maker Person: Cameron Tijerina (10/13/2016 10:32:Dorothy Durham RN) Person to Help after Discharge: Cameron Tijerina (10/13/2016 10:32:Dorothy Durham RN) Currently Using Commun Resources: No (10/13/2016 10:32:Dorothy Durham RN) Car Seat for Discharge: Yes (10/13/2016 10:32:Dorothy Durham RN) Adoption Requested: No (10/13/2016 10:32:Dorothy Durham RN) Pt Contact w/ Post : N/A (10/13/2016 10:32:Dorothy Durham RN) LABS Blood Type: A Positive (10/13/2016 10:32:Melody Gibson RN) Antibody Screen: neg (10/13/2016 10:32:Melody Gibson RN) Hemoglobin: 8.3 L (11/10/2016 07:34:QS system process) Hematocrit: 24.8 L (11/10/2016 07:34:QS system process) MCV: 86 (11/10/2016 07:34:QS system process) Group Beta Strep: neg (10/13/2016 10:32:Dorothy Durham RN) Gonorrhea: Negative (10/13/2016 10:32:Melody Gibson RN) Chlamydia: Negative (10/13/2016 10:32:Melody Gibson RN) RPR/VDRL: Nonreactive (10/13/2016 10:32:Melody Gibson RN) HIV Exposure Test: Negative (10/13/2016 10:32:Melody Gibson RN) Hepatitis B: Negative (10/13/2016 10:32:Melody Gibson RN) Rubella: Immune (10/13/2016 10:32:Melody Gibson RN) OB/PREVIOUS HISTORY Current Procedures: Ultrasound; NST (10/13/2016 10:32:Dorothy Durham RN) History of Previous : No (10/13/2016 10:32:Dorothy Durham RN) History of Gestational Diabetes: Yes (10/13/2016 10:32:Dorothy Durham RN) History of PIH: Yes (10/13/2016 10:32:Dorothy Durham RN) History of Incompetent Cervix: No (10/13/2016 10:32:Dorothy Durham RN) History of Placenta Previa/Abrup: No (10/13/2016 10:32:Dorothy Durham RN) History of Macrosomia: No (10/13/2016 10:32:Dorothy Durham RN) History of IUGR: No (10/13/2016 10:32:Dorothy Durham RN) History of Hemorrhage: No (10/13/2016 10:32:Dorothy Durham RN) History of Loss/Stillborn: No (10/13/2016 10:32:Dorothy Durham RN) History of : No (10/13/2016 10:32:Dorothy Durham RN) History of D (Rh) Sensitization: No (10/13/2016 10:32:Dorothy Durham RN) History Recurrent Loss/Stillborn: No (10/13/2016 10:32:Dorothy Durham RN) History Depression/PP Depression: No (10/13/2016 10:32:Dorothy Durham RN) History of Uterine Anomaly/LAILA: No (10/13/2016 10:32:Dorothy Durham RN) History of Infertility: No (10/13/2016 10:32:Dorothy Durham RN) History of ART Treatment: No (10/13/2016 10:32:Dorothy Durham RN) History of LAILA: No (10/13/2016 10:32:Dorothy Durham RN) Comments Obstetrical History: G1- 2006 ETOP G2- current - chtn vs ghtn (10/13/2016 10:32:Dorothy Durham RN) MEDICAL HISTORY Med Hx Diabetes: No (10/13/2016 10:32:Dorothy Durham RN) Diabetes Type: Gestational Diabetes (10/13/2016 10:32:Dorothy Durham RN) Med Hx Hypertension: Yes (10/13/2016 10:32:Dorothy Durham RN) Med Hx Heart Disease: No (10/13/2016 10:32:Dorothy Durham RN) Med Hx Autoimmune Disorder: No (10/13/2016 10:32:Dorothy Durham RN) Med Hx Kidney Disease/UTI: No (10/13/2016 10:32:Dorothy Durham RN) Med Hx Neurologic/Epilepsy: No (10/13/2016 10:32:Dorothy Durham RN) Med Hx Psychiatric Disorders: No (10/13/2016 10:32:Dorothy Durham RN) Med Hx Hepatitis/Liver Disease: No (10/13/2016 10:32:Dorothy Durham RN) Med Hx Varicosities/Phlebitis: No (10/13/2016 10:32:Dorothy Durham RN) Med Hx Thyroid Dysfunction: No (10/13/2016 10:32:Dorothy Durham RN) Med Hx Trauma/Violence: No (10/13/2016 10:32:Dorothy Durham RN) Med Hx Blood Transfusion: No (10/13/2016 10:32:Dorothy Durham RN) Med Hx Pulmonary (Asthma,TB): No (10/13/2016 10:32:Dorothy Durham RN) Med Hx Breast: No (10/13/2016 10:32:Dorothy Durham RN) Med Hx PROMOTIONS DIRECTOR Surgery: No (10/13/2016 10:32:Dorothy Durham RN) Med Hx Hospitalization/Surgery: No (10/13/2016 10:32:Dorothy Durham RN) Med Hx Anesthetic Complications: No (10/13/2016 10:32:Dorothy Durham RN) Med Hx Abnormal Pap Smear: Yes (10/13/2016 10:32:Dorothy Durham RN) Other Medical Diseases: No (10/13/2016 10:32:Dorothy Durham RN) Med Hx Significant Family Hx: No (10/13/2016 10:32:Dorothy Durham RN) Details of Med/Surg Hx: abnormal PAP when 15, "scraped cervix" and follow up with clear (10/13/2016 10:32:Dorothy Durham RN) INFECTIOUS HISTORY Inf Hx Gonorrhea: No (10/13/2016 10:32:Dorothy Durham RN) Inf Hx Chlamydia: No (10/13/2016 10:32:Dorothy Durham RN) Inf Hx Syphilis: No (10/13/2016 10:32:Dorothy Durham RN) Inf Hx HIV/AIDS: No (10/13/2016 10:32:Dorothy Durham RN) Inf Hx Human Papilloma Virus: No (10/13/2016 10:32:Dorothy Durham RN) Inf Hx Pt/Partner Genital Herpes: No (10/13/2016 10:32:Dorothy Durham RN) Inf Hx Tuberculosis/Exposure: No (10/13/2016 10:32:Dorothy Durham RN) Inf Hx Hepatitis B,C: No (10/13/2016 10:32:Dorothy Durham RN) Inf Hx Rash or Viral Illness: No (10/13/2016 10:32:Dorothy Durham RN) GENETIC HISTORY Gen Hx Age >=35 at CLARE: No (10/13/2016 10:32:Dorothy Durham RN) Gen Hx Thalassemia: No (10/13/2016 10:32:Dorothy Durham RN) Gen Hx Congenital Heart Defect: No (10/13/2016 10:32:Dorothy Durham RN) Gen Hx Neural Tube Defect: No (10/13/2016 10:32:Dorothy Durham RN) Gen Hx Down's Syndrome: No (10/13/2016 10:32:Dorothy Durham RN) Gen Hx Naseem-Sachs: No (10/13/2016 10:32:Dorothy Durham RN) Gen Hx Alexia: No (10/13/2016 10:32:Dorothy Durham RN) Gen Hx Familial Dysautonomia: No (10/13/2016 10:32:Dorothy Durham RN) Gen Hx Sickle Cell Disease/Trait: No (10/13/2016 10:32:Dorothy Durham RN) Gen Hx Hemophilia/Blood Disorder: No (10/13/2016 10:32:Dorothy Durham RN) Gen Hx Muscular Dystrophy: No (10/13/2016 10:32:Dorothy Durham RN) Gen Hx Cystic Fibrosis: No (10/13/2016 10:32:Dorothy Durham RN) Gen Hx Huntingtons Chorea: No (10/13/2016 10:32:Dorothy Durham RN) Gen Hx Mental Retardation/Autism: No (10/13/2016 10:32:Dorothy Durham RN) Gen Hx Tested for Fragile X: No (10/13/2016 10:32:Dorothy Durham RN) Gen Hx Other Inher/Chromosomal: No (10/13/2016 10:32:Dorothy Durham RN) Gen Hx Maternal Metabolic DO: No (10/13/2016 10:32:Dorothy Durham RN) Gen Hx Pt Father or FOB Defect: No (10/13/2016 10:32:Dorothy Durham RN) Gen Hx Other Genetic History: No (10/13/2016 10:32:Dorothy Durham RN) Gen Hx Drugs/Meds since LMP: No (10/13/2016 10:32:Dorothy Durham RN)
[2016-11-11] MEDS: DOCUSATE SODIUM 100 MG CAPSULE PO SCH (10:01)
[2016-11-11] MEDS: FAMOTIDINE 20 MG TABLET PO SCH (10:02)
[2016-11-11] MEDS: FERROUS SULFATE 325 MG TABLET PO SCH (10:04)
[2016-11-11 11:05] VITALS: BP 116/48
--- NOTE | 2016-11-11 17:21 | PDOC DISCHARGE SUMMARY ---
Final Diagnosis Discharge Date: 11/11/16 - Final Diagnosis (1) Acute blood loss anemia Is this a current diagnosis for this admission?: Yes (2) Delivery normal Is this a current diagnosis for this admission?: Yes (3) Gestational diabetes Is this a current diagnosis for this admission?: Yes (4) hemorrhage, third stage Is this a current diagnosis for this admission?: Yes (5) induced hypertension Is this a current diagnosis for this admission?: Yes Discharge Data - Discharge Medication Home Medications: Vit No.129/Iron/FA [ One Daily Tablet] 1 tab PO DAILY 10/13/16 Benzocaine/Menthol [Dermoplast Aerosol [place] 56 ml] 1 applic TOP PRN PRN #1 can 11/11/16 Docusate Sodium [Colace 100 mg Capsule] 100 mg PO BID #60 capsule 11/11/16 Ferrous Sulfate [Feosol 325 mg Tablet] 325 mg PO BID #60 tablet 11/11/16 Ibuprofen [Motrin 800 mg Tablet] 800 mg PO Q8HP PRN #90 tablet 11/11/16 Reason(s) for Admission: Induction of Labor Procedures: NST, Ultrasound Intrapartum Procedure(s): Spontaneous Vaginal Delivery Complication(s): Episiotomy Laceration-Degree: 1st Complication(s) Note: hemorrhage - [place] Data Baby 1 Male at 1 minute: 9 at 5 minutes: 9 Weight: 3680 kg Home with Mother: Yes Complications: No - Diagnosis Test Laboratory: Temp Pulse Resp BP Pulse Ox 98.0 F 86 16 116/48 L 100 11/11/16 11:02 11/11/16 11:02 11/11/16 11:02 11/11/16 11:02 11/11/16 11:02 11/08/16 11/08/16 11/09/16 09:10 10:08 07:34 RBC 3.71 L 3.82 Hgb 10.6 L 10.9 L Hct 31.8 L 32.7 L Urine Opiates Screen NEGATIVE 11/10/16 07:34 RBC 2.89 L Hgb 8.3 L D Hct 24.8 L Urine Opiates Screen - Discharge information/Instructions Discharge Activity: Activity As Tolerated, Balance Activity w/Rest, No Lifting Over 10 Pounds, No Lifting/Push/Pulling, Pelvic Rest, Slowly Increase Activity, No tub bath Discharge Diet: Regular Disposition: HOME, SELF-CARE Follow up with: [facility] in: 1, Weeks - bp check Physical Exam (OB) Vital Signs: Temp Pulse Resp BP Pulse Ox 98.0 F 86 16 116/48 L 100 11/11/16 11:02 11/11/16 11:02 11/11/16 11:02 11/11/16 11:02 11/11/16 11:02 Intake & Output 11/10/16 11/11/16 11/12/16 06:59 06:59 06:59 Output Total 900 Balance -900 - General General Appearance: Appears well In distress: None - PIH/Pre-Eclampsia DTR's: 1 + Clonus: Negative Headache: Absent Epigastric Pain: No Visual Changes: No - Episiotomy/Laceration Site Condition: Well Approximated - Lochia Lochia Amount: Small 10-25 ml Lochia Color: Rubra/Red - Abdomen Description: Soft, Round Hernia Present: No Fundal Description: Firm, Midline Fundal Height: u/u - u/2 - Respiratory Respiratory Status: No respiratory distress - Neurological Cognition: Normal Orientation: AAOx4 - Psychological Associated symptoms: Normal affect, Normal mood - helpful at bedside. Bonding well with baby
== END 2016-11-11 14:45 | disposition home or self-care (01) | DRG 774 ==
LOC: LR 09:02 → 2S 11-09 22:37
PROVIDERS: ADMIT Specialist; ATTEND Specialist
PROC: 4A1HXCZ Monitoring of Products of Conception, Cardiac Rate, External Approach (ICD-10-PCS; 2016-11-08)
PROC: 0W8NXZZ Division of Female Perineum, External Approach (ICD-10-PCS; principal; 2016-11-09)
PROC: 10E0XZZ Delivery of Products of Conception, External Approach (ICD-10-PCS; 2016-11-09)
PROC: 3E0P7GC Introduction of Other Therapeutic Substance into Female Reproductive, Via Natural or Artificial Opening (ICD-10-PCS; 2016-11-09)
DX: O13.4 Gestational [pregnancy-induced] hypertension without significant proteinuria, complicating childbirth (principal); O72.0 Third-stage hemorrhage; D62 Acute posthemorrhagic anemia; O24.429 Gestational diabetes mellitus in childbirth, unspecified control; Z28.82 Immunization not carried out because of caregiver refusal; O99.02 Anemia complicating childbirth; O70.0 First degree perineal laceration during delivery; O69.81X0 Labor and delivery complicated by cord around neck, without compression, not applicable or unspecified; Z3A.38 38 weeks gestation of pregnancy; Z37.0 Single live birth
CPT/HCPCS: 36415; 80053; 80307; 81001; 82962; 83615; 84550; 85025; 85027; 86592; 86850; 86900; 86901; 88307; J1335; J2405; J2590; J3490